=== PATIENT | male | born 1945 | race Caucasian/White ===

== ENCOUNTER 2018-02-14 09:44 | Observation (INO) | payer MEDICARE ==
[2018-02-14] MEDS ORDERED: NS 0.9% 1000 ML* 1,000 ML IV ONE (11:26)
[2018-02-14 11:48] LABS: ABS Basophils 0.1 10^3/ul (0-0.2); ABS Eosinophils 0.3 10^3/ul (0-0.6); ABS Lymphocytes 1.1 10^3/ul (1.0-4.8); ABS Monocytes 0.7 10^3/ul (0-0.8); ABS Neutrophils 6.6 10^3/ul (1.5-7.7); ABS Nucleated RBC 0 10^3/ul; Eosinophil % 3.1 % (0-6); Hematocrit 37 % (42-52); Hemoglobin 12.5 g/dl (14.0-18.0); Lymphocyte % 12.2 % (25-47); Mean Corpuscular HGB Conc 34 g/dl (31-36); Mean Corpuscular Hemoglobin 30 pg (27-31); Mean Corpuscular Volume 88 fL (80-94); Mean Platelet Volume 8.6 um3 (7.4-10.4); Nucleated Red Blood Cells % 0.2; Platelet Count 114 10^3/ul (150-450); Red Blood Count 4.25 10^6/ul (4.0-5.4); Red Cell Distribution Width 15 % (10.5-15); White Blood Count 8.7 10^3/ul (3.5-10.8)
[2018-02-14 11:56] LABS: INR 1.11 (0.77-1.02)
[2018-02-14 12:05] LABS: EGFR Non-African American 83.8 (>60)
--- NOTE | 2018-02-14 12:06 | RAD ---
HISTORY: Cough COMPARISONS: None VIEWS: 4: Frontal dual-energy and lateral views of the chest. FINDINGS: CARDIOMEDIASTINAL SILHOUETTE: The cardiomediastinal silhouette is normal. RADHA: The radha are normal. PLEURA: There is a small right pleural effusion. LUNG PARENCHYMA: The lungs are clear. ABDOMEN: The upper abdomen is clear. There is no subphrenic gas. BONES AND SOFT TISSUES: No bone or soft tissue abnormalities are noted. OTHER: None. IMPRESSION: SMALL RIGHT PLEURAL EFFUSION.
[2018-02-14] MEDS ORDERED: Azithromycin IV(*) 250 MG in NS 0.9% 250 ML* 250 ML IVPB ONE (12:27)
[2018-02-14] MEDS ORDERED: cefTRIAXone(*) 1 GM in NS 0.9% 50 ML* 50 ML IVPB ONE (12:27)
[2018-02-14] MEDS ORDERED: Iodixanol* (CONTRAST) 320 MG/ML 100 ML SDV IV ONE (12:38)
--- NOTE | 2018-02-14 12:57 | RAD ---
HISTORY: Pleural effusion, pulmonary embolism COMPARISONS: None TECHNIQUE: Multiple contiguous axial CT scans of the chest were obtained after the administration of nonionic intravenous contrast, timed to the pulmonary arterial phase of contrast enhancement.. Coronal and sagittal multiplanar reformations are also submitted for review. FINDINGS: NECK AND THYROID: The lower neck and thyroid are unremarkable. CHEST WALL: There is no lower cervical, axillary, or supraclavicular lymphadenopathy by size criteria. HEART AND PERICARDIUM: The heart is unremarkable. AORTA AND PULMONARY VASCULATURE: There is no pulmonary arterial filling defect to suggest pulmonary embolism. There is no linear filling defect within the aorta to suggest aortic dissection. MEDIASTINUM: There is no mediastinal lymphadenopathy by size criteria. RADHA: There is no hilar lymphadenopathy by size criteria. AIRWAY AND ESOPHAGUS: The airway is unremarkable, without endobronchial filling defect. The esophagus is grossly normal. LUNG PARENCHYMA: There is compressive atelectasis of the right lower lobe. PLEURA: There is a moderate right pleural effusion. There is pleural nodularity on the right. UPPER ABDOMEN: The liver and spleen are diffusely enlarged. There is a low-attenuation lesion of the right lobe of the liver measuring simple fluid in attenuation. There are paraesophageal and gastrohepatic varices. There is a micronodular contour to the liver. BONES AND SOFT TISSUES: Mild degenerative changes are noted. OTHER: None. IMPRESSION: 1. NO PULMONARY ARTERIAL FILLING DEFECT TO SUGGEST PULMONARY EMBOLISM. 2. MODERATE RIGHT PLEURAL EFFUSION WITH PLEURAL NODULARITY. THE DIFFERENTIAL INCLUDES MALIGNANT PLEURAL EFFUSION. 3. ENLARGED LIVER WITH A MICRONODULAR CONTOUR. ADDITIONALLY, THERE ARE UPPER ABDOMINAL VARICES WITH ENLARGED SPLEEN SUGGESTIVE OF PORTAL HYPERTENSION.
[2018-02-14 13:17] LABS: Urine Appearance Clear; Urine Blood Negative (Negative); Urine Color Yellow; Urine Ketones Negative (Negative); Urine Protein Negative (Negative); Urine Specific Gravity 1.034 (1.010-1.030); Urine Urobilinogen Negative (Negative)
--- NOTE | 2018-02-14 14:10 | ED ---
Brian Campos Rebecca, scribed for Mil Albrecht on 02/14/18 at 1058 . Respiratory - HPI Summary HPI Summary: Pt is a 72 y/o M who presents to ED c/o URI symptoms. For 3 weeks, the pt has been experiencing a cough and right anterior chest associated with cough. On triage, pain was described as mild, ranked 2/10. Sx aggravated by cough, alleviated by nothing. Additionally c/o SOB with exertion and fatigue. Denies fever and edema. Pt called his PCP, Dr. Granados, this morning who referred him to [facility] ED to r/o PNA. - History of Current Complaint Chief Complaint: EDUpperRespComplaint Stated Complaint: COUGH,CHEST CONGESTION Time Seen by Provider: 02/14/18 10:57 Hx Obtained From: Patient Onset/Duration: Lasting Weeks - 3 weeks, Still Present Current Severity: Mild Pain Intensity: 2 Character: Cough (Nonproductive), Dyspnea on Exertion Aggravating Factor(s): Other - Cough Alleviating Factor(s): Nothing Associated Signs and Symptoms: SOB - Allergy/Home Medications Allergies/Adverse Reactions: Allergies Allergy/AdvReac Type Severity Reaction Status Date / Time Sulfa (Sulfonamide Allergy as a child Verified 02/14/18 09:47 Antibiotics) Home Medications: Home Medications Ubidecarenone [Co Q-10] 200 mg PO DAILY 02/14/18 [History Confirmed 02/14/18] PMH/Surg Hx/FS Hx/Imm Hx Endocrine/Hematology History: Reports: Hx Diabetes - type 2 Cardiovascular History: Reports: Hx Hypercholesterolemia, Hx Hypertension Denies: Hx Pacemaker/ICD History: Reports: Hx Kidney Stones Denies: Hx Renal Disease Musculoskeletal History: Reports: Hx Arthritis - psoriatic arthritis Sensory History: Reports: Hx Contacts or Glasses - glasses, Hx Hearing Aid - bilat Opthamlomology History: Reports: Hx Contacts or Glasses - glasses Psychiatric History: Denies: Hx Panic Disorder - Surgical History Surgery Procedure, Year, and Place: Carpel tunnel releases bilateral. colonoscopies Hx Anesthesia Reactions: No Infectious Disease History: No Infectious Disease History: Denies: Traveled Outside the [place] in Last 30 Days - Family History Known Family History: Positive: Hypertension, Diabetes - Social History Alcohol Use: Rare Substance Use Type: Reports: None Smoking Status (MU): Former Smoker Amount Used/How Often: smoked cigars Review of Systems Positive: Fatigue. Negative: Fever Positive: Chest Pain Positive: Shortness Of Breath, Cough Negative: Edema All Other Systems Reviewed And Are Negative: Yes Physical Exam - Summary Physical Exam Summary: Appearance: Well appearing, no pain distress Skin: warm, dry, reflects adequate perfusion Head/face: normal Eyes: EOMI, LORENE ENT: normal Neck: supple, non-tender Respiratory: CTA, breath sounds present Cardiovascular: RRR, pulses symmetrical Abdomen: non-tender, soft Bowel: present Musculoskeletal: normal, strength/ROM intact Neuro: normal, sensory motor intact, A&Ox3 Triage Information Reviewed: Yes Vital Signs On Initial Exam: Initial Vitals Temp Pulse Resp BP Pulse Ox 97.5 F 77 18 149/72 96 02/14/18 09:47 02/14/18 09:47 02/14/18 09:47 02/14/18 09:47 02/14/18 09:47 Vital Signs Reviewed: Yes Diagnostics - Vital Signs Vital Signs Temp Pulse Resp BP Pulse Ox 02/14/18 09:47 97.5 F 77 18 149/72 96 - Laboratory Lab Results: Lab Results 02/14/18 02/14/18 02/14/18 Range/Units 11:38 11:38 11:38 WBC 8.7 (3.5-10.8) 10^3/ul RBC 4.25 (4.0-5.4) 10^6/ul Hgb 12.5 L (14.0-18.0) g/dl Hct 37 L (42-52) % MCV 88 (80-94) fL MCH 30 (27-31) pg MCHC 34 (31-36) g/dl RDW 15 (10.5-15) % Plt Count 114 L (150-450) 10^3/ul MPV 8.6 (7.4-10.4) um3 Neut % (Auto) 75.3 (38-83) % Lymph % (Auto) 12.2 L (25-47) % [place] % (Auto) 8.5 H (0-7) % Eos % (Auto) 3.1 (0-6) % Baso % (Auto) 0.9 (0-2) % Absolute Neuts (auto) 6.6 (1.5-7.7) 10^3/ul Absolute Lymphs (auto) 1.1 (1.0-4.8) 10^3/ul Absolute Monos (auto) 0.7 (0-0.8) 10^3/ul Absolute Eos (auto) 0.3 (0-0.6) 10^3/ul Absolute Basos (auto) 0.1 (0-0.2) 10^3/ul Absolute Nucleated RBC 0 10^3/ul Nucleated RBC % 0.2 INR (Anticoag Therapy) 1.11 H (0.77-1.02) APTT 28.0 (26.0-36.3) seconds Sodium 135 L (139-145) mmol/L Potassium 4.2 (3.5-5.0) mmol/L Chloride 101 (101-111) mmol/L Carbon Dioxide 27 (22-32) mmol/L Anion Gap 7 (2-11) mmol/L BUN 12 (6-24) mg/dL Creatinine 0.89 (0.67-1.17) mg/dL Est GFR ( Amer) 107.8 (>60) Est GFR (Non-Af Amer) 83.8 (>60) BUN/Creatinine Ratio 13.5 (8-20) Glucose 179 H (70-100) mg/dL Lactic Acid (0.5-2.0) mmol/L Calcium 9.6 (8.6-10.3) mg/dL Total Bilirubin 0.80 (0.2-1.0) mg/dL AST 23 (13-39) U/L ALT 22 (7-52) U/L Alkaline Phosphatase 105 H (34-104) U/L Troponin I 0.00 (<0.04) ng/mL B-Natriuretic Peptide ( - 100) pg/mL Total Protein 7.4 (6.4-8.9) g/dL Albumin 3.6 (3.2-5.2) g/dL Globulin 3.8 (2-4) g/dL Albumin/Globulin Ratio 0.9 L (1-3) Urine Color Urine Appearance Urine pH (5-9) Ur Specific [place] (1.010-1.030) Urine Protein (Negative) Urine Ketones (Negative) Urine Blood (Negative) Urine Nitrate (Negative) Urine Bilirubin (Negative) Urine Urobilinogen (Negative) Ur Leukocyte Esterase (Negative) Urine Glucose (Negative) 0502/14/18 02/14/18 Range/Units 11:38 11:38 13:04 WBC (3.5-10.8) 10^3/ul RBC (4.0-5.4) 10^6/ul Hgb (14.0-18.0) g/dl Hct (42-52) % MCV (80-94) fL MCH (27-31) pg MCHC (31-36) g/dl RDW (10.5-15) % Plt Count (150-450) 10^3/ul MPV (7.4-10.4) um3 Neut % (Auto) (38-83) % Lymph % (Auto) (25-47) % [place] % (Auto) (0-7) % Eos % (Auto) (0-6) % Baso % (Auto) (0-2) % Absolute Neuts (auto) (1.5-7.7) 10^3/ul Absolute Lymphs (auto) (1.0-4.8) 10^3/ul Absolute Monos (auto) (0-0.8) 10^3/ul Absolute Eos (auto) (0-0.6) 10^3/ul Absolute Basos (auto) (0-0.2) 10^3/ul Absolute Nucleated RBC 10^3/ul Nucleated RBC % INR (Anticoag Therapy) (0.77-1.02) APTT (26.0-36.3) seconds Sodium (139-145) mmol/L Potassium (3.5-5.0) mmol/L Chloride (101-111) mmol/L Carbon Dioxide (22-32) mmol/L Anion Gap (2-11) mmol/L BUN (6-24) mg/dL Creatinine (0.67-1.17) mg/dL Est GFR ( Amer) (>60) Est GFR (Non-Af Amer) (>60) BUN/Creatinine Ratio (8-20) Glucose (70-100) mg/dL Lactic Acid 1.5 (0.5-2.0) mmol/L Calcium (8.6-10.3) mg/dL Total Bilirubin (0.2-1.0) mg/dL AST (13-39) U/L ALT (7-52) U/L Alkaline Phosphatase (34-104) U/L Troponin I (<0.04) ng/mL B-Natriuretic Peptide 66 ( - 100) pg/mL Total Protein (6.4-8.9) g/dL Albumin (3.2-5.2) g/dL Globulin (2-4) g/dL Albumin/Globulin Ratio (1-3) Urine Color Yellow Urine Appearance Clear Urine pH 6.0 (5-9) Ur Specific [place] 1.034 H (1.010-1.030) Urine Protein Negative (Negative) Urine Ketones Negative (Negative) Urine Blood Negative (Negative) Urine Nitrate Negative (Negative) Urine Bilirubin Negative (Negative) Urine Urobilinogen Negative (Negative) Ur Leukocyte Esterase Negative (Negative) Urine Glucose Negative (Negative) Result Diagrams: 02/14/18 11:38 02/14/18 11:38 Lab Statement: Any lab studies that have been ordered have been reviewed, and results considered in the medical decision making process. - Radiology CXR Xray Interpretation: Positive (See Comments) - SMALL RIGHT PLEURAL EFFUSION. ED physician reviewed this report. Radiology Interpretation Completed By: Radiologist - CT CTA Chest CT Interpretation Completed By: Radiologist - 1. NO PULMONARY ARTERIAL FILLING DEFECT TO SUGGEST PULMONARY EMBOLISM. 2. MODERATE RIGHT PLEURAL EFFUSION WITH PLEURAL NODULARITY. THE DIFFERENTIAL INCLUDES MALIGNANT PLEURAL EFFUSION. 3. ENLARGED LIVER WITH A MICRONODULAR CONTOUR. ADDITIONALLY, THERE ARE UPPER ABDOMINAL VARICES WITH ENLARGED SPLEEN SUGGESTIVE OF PORTAL HYPERTENSION. ED physician reviewed this report. - EKG 1133 Cardiac Rate: NL - 75 bpm EKG Rhythm: Sinus Rhythm EKG Interpretation: No acute changes Re-Evaluation - Re-Evaluation First Eval Re-Evaluation Time: 13:32 Comment: Continues to have SOB. Disposition - Course Assessment/Plan: Pt is a 72 y/o M who presents to ED c/o cough, mild right anterior CP associated with cough and dyspnea on exertion with fatigue for 3 weeks. Pt called his PCP, Dr. Granados, this morning who referred him to [facility] ED to r/o PNA. EKG is sinus rhythm with no acute changes. CXR reveals small right pleural effusion. Discussed care with Dr. Denny who requested a CTA chest. CTA chest was negative for a pulmonary embolism. Discussed with Dr. Denny again who accepts pt for admission. In the ED course, pt received rocephin, fluids and azithromycin. Pt will be admitted with Dx of pneumonia and right pleural effusion. Allergy noted. - Differential Dx - Cardiopulmonary Differential Diagnoses - Cardiopulmonary: Bronchitis, CHF, Lower Resp Infection , Pleurisy, Other - pneumonia - Diagnoses Provider Diagnoses: Pneumonia, Pleural effusion, right - Physician Notifications Discussed Care Of Patient With: Gisella Denny Time Discussed With Above Provider: 12:35 Instructed by Provider To: Other - Requesting a CTA Chest. Discussed with Dr. Denny again at 1330 who accepts the pt for admission. Discharge - Sign-Out/Discharge Documenting (check all that apply): Discharge/Admit/Transfer - Admit - Discharge Plan Condition: Stable Disposition: ADMITTED TO [facility] Referrals: Leonel Light MD [Primary Care Provider] - - Billing Disposition and Condition Condition: STABLE Disposition: HOSP-[facility] The documentation as recorded by the Brian smith Rebecca accurately reflects the service I personally performed and the decisions made by Trena lambert Emmanuel.
[2018-02-14] MEDS ORDERED: Dextrose 50% Syringe 50 ML* 25 GM/50 ML SYRINGE IV PUSH PRN (14:32)
[2018-02-14] MEDS ORDERED: Furosemide IV* 10 MG/ML VIAL (40 MG) IV ONE (15:27)
[2018-02-14] MEDS: Insulin LISPRO* 1 UNITS UNIT SUBCUT SCH ×2 (16:38→20:40)
[2018-02-14] MEDS: Heparin VIAL(*) 5000 UNITS/ML VIAL (FIVE THOUSAND) SUBCUT SCH (20:41)
--- NOTE | 2018-02-14 21:30 | HP ---
CC: Leonel Light MD * ADMISSION HISTORY AND PHYSICAL: DATE OF ADMISSION: 02/14/18 ATTENDING PHYSICIAN: Gisella Denny MD * (DICTATED BY MATTHEW MESSINA NP) PRIMARY CARE PHYSICIAN: Leonel Light MD CHIEF COMPLAINT: Shortness of breath and cough. HISTORY OF PRESENT ILLNESS: This is a very pleasant 72-year-old male patient who reports increasing shortness of breath, dyspnea with exertion, upper respiratory symptoms and cough for 3 weeks. The patient also notes weight loss of 12 pounds in 4 weeks and some marked anorexia while at home. The patient states his p.o. intake has dropped by approximately 50% with no precipitating factors. He had not been dieting or trying to lose weight, just having some general malaise and fatigue and primarily this upper respiratory complaint. The patient has this unproductive cough but denies any fever, fatigue or chills. No chest pain. Some intermittent shortness of breath. No abdominal pain. No nausea. No vomiting. No urinary complaints. No arthralgias or myalgias. No nausea, vomiting, or diarrhea. No further constitutional complaints. PAST MEDICAL HISTORY: Significant for: 1. Non-insulin dependent diabetes mellitus. 2. Hypertension. PAST SURGICAL HISTORY: 1. Carpal tunnel release bilaterally. 2. Screening colonoscopy in the past. 3. Recent endoscopy. MEDICATIONS: At home include: 1. CoQ10 of 200 mg daily. 2. Metformin 1000 mg b.i.d. 3. Pravastatin 20 mg daily. 4. Metoprolol succinate XL 50 mg daily. 5. Ibuprofen 800 mg q.6 hours as needed. ALLERGIES: The patient has a SULFA allergy and SULFA BASED ANTIBIOTICS. FAMILY HISTORY: Parents with hypertension. Both parents also with pancreatic cancer, both . SOCIAL HISTORY: The patient does not smoke, used to smoke cigars many years ago and does drink alcohol very infrequently and denies any illicit drug use. 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 His , Yoli, is his healthcare proxy and surrogate decision maker who is at the bedside. REVIEW OF SYSTEMS: Ten-point review of systems is negative except as noted in HPI. PHYSICAL EXAMINATION GENERAL: The patient is alert, well appearing, in no acute distress. VITAL SIGNS: Blood pressure 146/72, heart rate 85, respiratory rate 18, O2 saturation 95% at rest on room air, temperature is 97.5. HEENT: The patient is atraumatic, normocephalic. PERRLA with nonicteric sclerae. NECK: Supple. Nontender. No thyromegaly appreciated. No JVD noted. LUNGS: Left lung is clear with good air entry on the left. Right, he has an inspiratory and expiratory wheeze with a pleuritic rub. No rales and no diffuse rhonchi noted. CARDIOVASCULAR: S1, S2 present. No murmurs, gallops, or rubs. Rate and rhythm are regular. ABDOMEN: Soft, nontender, nondistended. : Deferred. MUSCULOSKELETAL: There is no clubbing and no cyanosis. He has no peripheral edema. +2 distal pulses palpable. He is ambulatory without assistance. NEUROLOGIC: Grossly intact with no focal deficits. PSYCHIATRIC: He is cooperative and appropriate. LABORATORY DATA: WBC is 8.7, RBC is 4.25, hemoglobin 12.5, hematocrit 37, platelets 114,000. Sodium 135, potassium 4.2, chloride 101, CO2 of 27, BUN 12, creatinine 0.89, GFR is 83.8, glucose 179, lactic acid 1.5, calcium 9.6, bilirubin 0.80. AST 23, ALT 22, alk phos 105. Troponin is negative at 0.00. BNP is 66. Protein 7.4, albumin 3.6, globulin 3.8, INR is 1.11. Urinalysis shows a high specific gravity at 1.034, otherwise negative. IMAGING: Chest x-ray dated today shows a small right pleural effusion. Followup CAT scan of the chest to rule out PE, shows no pulmonary arterial filling defect to suggest a PE. There is a moderate right pleural effusion with pleural nodularity. The differential includes malignant pleural effusion, enlarged liver with a micronodular contour. Additionally, there are upper abdominal varices with an enlarged spleen suggestive of portal hypertension. Also in the liver, there is a low attenuation lesion of the right lobe of the liver measuring simple fluid and attenuation. IMPRESSION: This is a 72-year-old male with minimal medical history that presents to the emergency department with a 3-week complaint of progressive upper respiratory symptoms, cough, unproductive in nature, and shortness of breath that by a CAT scan today is shown to have a pleural effusion. Malignancy is in the differential. PLAN: The patient has been admitted to medical service. DIAGNOSES: 1. Right pleural effusion, etiology unclear. At this point, I would like to have the patient do walking saturations. The patient was stating he was clinically short of breath at home with dyspnea with exertion. We will check his walking sats to see if he is desaturating. We do not have Pulmonology on service today; however, he is very uncomfortable with his breathing on that right side. I have put a call out to Surgery to see if there is a possibility that we can tap this effusion today, both for the patient relief and also to send the fluid for cytology and pathology. 2. For his history of hypertension, we will continue his metoprolol. 3. For his diabetes, I would like to take him off his metformin for now and put him on insulin sliding scale. He can have a consistent carb diet. He is eating and drinking. I do not believe he needs IV fluids at this point. 4. For DVT prophylaxis, we will place him on heparin 5000 q.8 hours and again, we will look to Surgery and/or Pulmonology, whoever I can get in touch with first, for guidance regarding tapping this effusion and determining the cause. The rest of the patient's course will be determined by further diagnostics, laboratories and any other input from other providers as warranted during this admission. TIME SPENT: I spent approximately 60 minutes interviewing the patient, examining him, reviewing the chart and helping to determine the plan of care. MATTHEW MESSINA NP [id number]/[facility] #: [id number] YENNI
[2018-02-15] MEDS: Heparin VIAL(*) 5000 UNITS/ML VIAL (FIVE THOUSAND) SUBCUT SCH ×2 (05:00→14:58)
[2018-02-15 06:43] LABS: ABS Basophils 0.1 10^3/ul (0-0.2); ABS Eosinophils 0.2 10^3/ul (0-0.6); ABS Lymphocytes 0.9 10^3/ul (1.0-4.8); ABS Monocytes 0.8 10^3/ul (0-0.8); ABS Neutrophils 7.3 10^3/ul (1.5-7.7); ABS Nucleated RBC 0 10^3/ul; Eosinophil % 2.3 % (0-6); Hematocrit 35 % (42-52); Hemoglobin 12.2 g/dl (14.0-18.0); Lymphocyte % 9.7 % (25-47); Mean Corpuscular HGB Conc 35 g/dl (31-36); Mean Corpuscular Hemoglobin 30 pg (27-31); Mean Corpuscular Volume 86 fL (80-94); Mean Platelet Volume 8.4 um3 (7.4-10.4); Nucleated Red Blood Cells % 0; Platelet Count 111 10^3/ul (150-450); Red Blood Count 4.04 10^6/ul (4.0-5.4); Red Cell Distribution Width 15 % (10.5-15); White Blood Count 9.3 10^3/ul (3.5-10.8)
[2018-02-15 06:59] LABS: EGFR Non-African American 88.4 (>60)
[2018-02-15] MEDS: Insulin LISPRO* 1 UNITS UNIT SUBCUT SCH ×2 (08:45→14:04)
[2018-02-15] MEDS ORDERED: Metoprolol Succinate XL TAB* 50 MG PO SCH (09:00)
[2018-02-15] MEDS ORDERED: CMCS Pravastatin (NF) 20 MG TAB PO SCH ×2 (09:00→20:00)
--- NOTE | 2018-02-15 11:01 | PN ---
Subjective Date of Service: 02/15/18 Interval History: Pt is feeling about the same as when he came in. He describes feeling crappy. He still feels SOB and when he takes a deep breath it will trigger a coughing fit that could last up to an hour. He will occasionally bring up some clear mucous. Objective Active Medications: Dextrose (D50w Syringe 50 Ml*) 12.5 gm IV PUSH .FOR FS < 60 - SS PRN PRN Reason: FS < 60 Heparin Sodium (Porcine) (Heparin Vial(*)) 5,000 units SUBCUT Q8HR [facility] Last Admin: 02/15/18 05:00 Dose: Not Given Insulin Human Lispro (Humalog*) 0 units SUBCUT ACHS [facility] PRN Reason: Protocol Last Admin: 02/15/18 08:45 Dose: 2 unit Metoprolol Succinate (Toprol Xl Tab*) 50 mg PO DAILY [facility] Last Admin: 02/15/18 08:45 Dose: 50 mg Pravastatin Sodium (Pravachol (Nf)) 20 mg PO DAILY@1999 [facility] PRN Reason: Protocol Vital Signs - 8 hr 02/15/18 02/15/18 02/15/18 03:39 07:22 08:00 Temperature 98.9 F Pulse Rate 80 78 Respiratory 18 16 18 Rate Blood Pressure 139/65 121/64 (mmHg) O2 Sat by Pulse 93 93 Oximetry Oxygen Devices in Use Now: None Appearance: Elderly male who appears younger than his stated age sitting up in bed, NAD Eyes: No Scleral Icterus Ears/Nose/Mouth/Throat: Mucous Membranes Moist Respiratory: Symmetrical Chest Expansion and Respiratory Effort, Clear to Auscultation - diminshed breath sounds at the R base, no E to A change Cardiovascular: NL Sounds; No Murmurs; No JVD, RRR, No Edema Abdominal: NL Sounds; No Tenderness; No Distention Extremities: No Clubbing, Cyanosis Skin: No Rash or Ulcers, No Nodules or Sclerosis Neurological: Alert and Oriented x 3 Result Diagrams: 02/15/18 06:34 02/15/18 06:34 Additional Lab and Data: Lab Results 02/14/18 02/14/18 02/14/18 Range/Units 11:38 11:38 11:38 WBC 8.7 (3.5-10.8) 10^3/ul RBC 4.25 (4.0-5.4) 10^6/ul Hgb 12.5 L (14.0-18.0) g/dl Hct 37 L (42-52) % MCV 88 (80-94) fL MCH 30 (27-31) pg MCHC 34 (31-36) g/dl RDW 15 (10.5-15) % Plt Count 114 L (150-450) 10^3/ul MPV 8.6 (7.4-10.4) um3 Neut % (Auto) 75.3 (38-83) % Lymph % (Auto) 12.2 L (25-47) % Sierra % (Auto) 8.5 H (0-7) % Eos % (Auto) 3.1 (0-6) % Baso % (Auto) 0.9 (0-2) % Absolute Neuts (auto) 6.6 (1.5-7.7) 10^3/ul Absolute Lymphs (auto) 1.1 (1.0-4.8) 10^3/ul Absolute Monos (auto) 0.7 (0-0.8) 10^3/ul Absolute Eos (auto) 0.3 (0-0.6) 10^3/ul Absolute Basos (auto) 0.1 (0-0.2) 10^3/ul Absolute Nucleated RBC 0 10^3/ul Nucleated RBC % 0.2 INR (Anticoag Therapy) 1.11 H (0.77-1.02) APTT 28.0 (26.0-36.3) seconds Sodium 135 L (139-145) mmol/L Potassium 4.2 (3.5-5.0) mmol/L Chloride 101 (101-111) mmol/L Carbon Dioxide 27 (22-32) mmol/L Anion Gap 7 (2-11) mmol/L BUN 12 (6-24) mg/dL Creatinine 0.89 (0.67-1.17) mg/dL Est GFR ( Amer) 107.8 (>60) Est GFR (Non-Af Amer) 83.8 (>60) BUN/Creatinine Ratio 13.5 (8-20) Glucose 179 H (70-100) mg/dL Lactic Acid (0.5-2.0) mmol/L Calcium 9.6 (8.6-10.3) mg/dL Total Bilirubin 0.80 (0.2-1.0) mg/dL AST 23 (13-39) U/L ALT 22 (7-52) U/L Alkaline Phosphatase 105 H (34-104) U/L Troponin I 0.00 (<0.04) ng/mL B-Natriuretic Peptide ( - 100) pg/mL Total Protein 7.4 (6.4-8.9) g/dL Albumin 3.6 (3.2-5.2) g/dL Globulin 3.8 (2-4) g/dL Albumin/Globulin Ratio 0.9 L (1-3) Urine Color Urine Appearance Urine pH (5-9) Ur Specific [place] (1.010-1.030) Urine Protein (Negative) Urine Ketones (Negative) Urine Blood (Negative) Urine Nitrate (Negative) Urine Bilirubin (Negative) Urine Urobilinogen (Negative) Ur Leukocyte Esterase (Negative) Urine Glucose (Negative) 02/14/18 02/14/18 02/14/18 Range/Units 11:38 11:38 13:04 WBC (3.5-10.8) 10^3/ul RBC (4.0-5.4) 10^6/ul Hgb (14.0-18.0) g/dl Hct (42-52) % MCV (80-94) fL MCH (27-31) pg MCHC (31-36) g/dl RDW (10.5-15) % Plt Count (150-450) 10^3/ul MPV (7.4-10.4) um3 Neut % (Auto) (38-83) % Lymph % (Auto) (25-47) % Sierra % (Auto) (0-7) % Eos % (Auto) (0-6) % Baso % (Auto) (0-2) % Absolute Neuts (auto) (1.5-7.7) 10^3/ul Absolute Lymphs (auto) (1.0-4.8) 10^3/ul Absolute Monos (auto) (0-0.8) 10^3/ul Absolute Eos (auto) (0-0.6) 10^3/ul Absolute Basos (auto) (0-0.2) 10^3/ul Absolute Nucleated RBC 10^3/ul Nucleated RBC % INR (Anticoag Therapy) (0.77-1.02) APTT (26.0-36.3) seconds Sodium (139-145) mmol/L Potassium (3.5-5.0) mmol/L Chloride (101-111) mmol/L Carbon Dioxide (22-32) mmol/L Anion Gap (2-11) mmol/L BUN (6-24) mg/dL Creatinine (0.67-1.17) mg/dL Est GFR ( Amer) (>60) Est GFR (Non-Af Amer) (>60) BUN/Creatinine Ratio (8-20) Glucose (70-100) mg/dL Lactic Acid 1.5 (0.5-2.0) mmol/L Calcium (8.6-10.3) mg/dL Total Bilirubin (0.2-1.0) mg/dL AST (13-39) U/L ALT (7-52) U/L Alkaline Phosphatase (34-104) U/L Troponin I (<0.04) ng/mL B-Natriuretic Peptide 66 ( - 100) pg/mL Total Protein (6.4-8.9) g/dL Albumin (3.2-5.2) g/dL Globulin (2-4) g/dL Albumin/Globulin Ratio (1-3) Urine Color Yellow Urine Appearance Clear Urine pH 6.0 (5-9) Ur Specific [place] 1.034 H (1.010-1.030) Urine Protein Negative (Negative) Urine Ketones Negative (Negative) Urine Blood Negative (Negative) Urine Nitrate Negative (Negative) Urine Bilirubin Negative (Negative) Urine Urobilinogen Negative (Negative) Ur Leukocyte Esterase Negative (Negative) Urine Glucose Negative (Negative) Assess/Plan/Problems-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 Montoya, type II DM and HTN who presented to the ER with c/o SOB and cough for at least 3 -4 weeks and 12lb weight loss over at most 2-3 months. - Patient Problems (1) Dyspnea Current Visit: Yes Status: Acute Code(s): R06.00 - DYSPNEA, UNSPECIFIED SNOMED Code(s): 184920308 Comment: Likely secondary to pleural effusion. Dr. Campbell to consult today. No evidence of PE. No signs of infection at this time. (2) Pleural effusion Current Visit: Yes Status: Acute Code(s): J90 - PLEURAL EFFUSION, NOT ELSEWHERE CLASSIFIED SNOMED Code(s): 58784781 Comment: Plan for thoracentesis this afternoon with Dr. Campbell. ? etiology- malignant given pleural nodularity vs post infectious vs secondary to CHF. Echo ordered (seems unlikely as no other signs of CHF). (3) Type II diabetes mellitus Current Visit: Yes Status: Acute Comment: Sugars are under fair control. Continue lispro sliding scale. Metformin on hold for now. (4) HTN (hypertension) Current Visit: Yes Status: Acute Code(s): I10 - ESSENTIAL (PRIMARY) HYPERTENSION SNOMED Code(s): 25639580 Comment: BP is under good control. Continue metoprolol XL. (5) DVT prophylaxis Current Visit: Yes Status: Acute Code(s): ABI6779 - SNOMED Code(s): 493795359 Comment: ambulation while awaiting thoracentesis (6) Full code status Current Visit: Yes Status: Acute Code(s): Z78.9 - OTHER SPECIFIED HEALTH STATUS SNOMED Code(s): 628585910
--- NOTE | 2018-02-15 13:57 | RAD ---
HISTORY: Thoracentesis COMPARISONS: None. TECHNIQUE: Multiple transverse and longitudinal ultrasound images were obtained right hemithorax for the purposes of localization for thoracentesis using grayscale and color Doppler imaging. FINDINGS: There is a right pleural effusion. The distance from the skin to the margin of the effusion is 1.6 cm. The distance from the skin to the center of the effusion is 9.5 cm. A site was marked for the clinician. IMPRESSION: LIMITED ULTRASOUND OF THE RIGHT HEMITHORAX FOR THE PURPOSES OF LOCALIZATION FOR THORACENTESIS
[2018-02-15] MEDS ORDERED: cefTRIAXone(*) 1 GM in NS 0.9% 50 ML* 50 ML IVPB SCH (14:00)
--- NOTE | 2018-02-15 15:25 | RAD ---
HISTORY: Status post thoracentesis COMPARISONS: February 14, 2018 VIEWS: 1: frontal portable view of the chest at 3:03 PM FINDINGS: LINES AND TUBES: None. CARDIOMEDIASTINAL SILHOUETTE: The cardiomediastinal silhouette is normal for portable technique. PLEURA: The costophrenic angles are sharp. No pleural abnormalities are noted. There is no appreciable pneumothorax. LUNG PARENCHYMA: The lungs are clear. ABDOMEN: The upper abdomen is clear. There is no subphrenic gas. BONES AND SOFT TISSUES: No bone or soft tissue abnormalities are noted. IMPRESSION: INTERVAL RESOLUTION OF RIGHT PLEURAL EFFUSION. NO APPRECIABLE PNEUMOTHORAX.
--- NOTE | 2018-02-15 15:59 | ECHO ---
Patient: RUPA PAREKH [facility] Rec#: [id number] : 1945 Date: 02/15/2018 Age: 72y Height: 177.8 cm / 70.0 in Weight: 87.54 kg / 192.9 lbs Sex: M BSA: 2.06 Room#: 421 Admit Date#: 02/14/2018 Type: Inpatient Referring: Jessie Pollock DO Reading: Joshua Cash MD Senior Systems Software Engineer: Chaparrita Taylor RDCS CC: Loenel Light MD Transthoracic Echocardiogram Indication: SOB BP: 121/64 HR: 81 Rhythm: NSR Findings History: DM,HTN,right pleural effusion, s/p right thoracentesis just prior to this study. Technical Comments: The study quality is good. Completed at 1445. Left Ventricle: The left ventricular chamber size is decreased. Posterior wall hypertrophy is observed. Global left ventricular wall motion and contractility are within normal limits. There is normal left ventricular systolic function. The estimated ejection fraction is 55-60%. There is no consistent Doppler evidence of clinically significant diastolic dysfunction. Left Atrium: The left atrial chamber size is normal. Right Ventricle: The right ventricular cavity size is normal. The right ventricular global systolic function is normal. Right Atrium: The right atrial cavity size is normal. Aortic Valve: The aortic valve is trileaflet. There is no evidence of aortic valve thickening. There is no evidence of aortic regurgitation. There is no evidence of aortic stenosis. Mitral Valve: The mitral valve leaflets are mildly thickened. There is no evidence of mitral regurgitation. There is no evidence of mitral stenosis. Tricuspid Valve: The tricuspid valve leaflets are normal. There is no evidence of tricuspid valve regurgitation. Unable to estimate the right ventricular systolic pressure. There is no tricuspid stenosis. Pulmonic Valve: The pulmonic valve appears normal. Pericardium: The pericardium appears normal. Aorta: There is no dilatation of the ascending aorta. There is no dilatation of the aortic arch. There is no dilation of the aortic root. Pulmonary Artery: The main pulmonary artery appears normal. Venous: The venous system is not well visualized. Conclusions Global left ventricular wall motion and contractility are within normal limits. There is normal left ventricular systolic function. The estimated ejection fraction is 55-60%. The right ventricular global systolic function is normal. There is no evidence of aortic stenosis. There is no evidence of mitral regurgitation. There is no evidence of tricuspid valve regurgitation. Unable to estimate the right ventricular systolic pressure. Measurements Name Value Normal Range RVIDd (AP) 2D 2.6 cm (0.9 - 2.6) RVDdMajor (2D) 2.9 cm (2.2 - 4.4) RAd ISD 4CH 4.8 cm (3.4 - 4.9) RA (A4C)W 3.4 cm (2.9 - 4.6) IVSd (2D) 0.9 cm (0.6 - 1) LVPWd (2D) 1.1 cm (0.6 - 1) LVIDd (2D) 3.2 cm (3.6 - 5.4) LVIDs (2D) 2.5 cm - LV FS (2D) 22 % (25 - 45) Aortic Annulus 1.7 cm (1.4 - 2.6) Ao root diameter (2D) 3.3 cm (2.1 - 3.5) Ascending Ao 2.9 cm (2.1 - 3.4) Aortic arch 2.3 cm (1.8 - 3.4) Descending Ao 0.7 cm - LA dimension (AP) 2D 3.6 cm (2.3 - 3.8) LAd ISD 4CH 4.8 cm (2.9 - 5.3) LA ISD 4CH W 4 cm (2.5 - 4.5) Name Value Normal Range LA ESV SP 4CH (A/L) 43 ml - LA ESV SP 2CH (A/L) 33 ml - LA ESV BP (A/L) 38 ml - LA ESV BP (A/L) index 18.29 ml/m2 - LA ESV SP 4CH (MOD) 40 ml - LA ESV SP 2CH (MOD) 31 ml - Name Value Normal Range MV E-wave Vmax 0.9 m/sec - MV deceleration time 220 msec - MV A-wave Vmax 1 m/sec - MV E:A ratio 0.9 ratio - LV septal e' Vmax 0.07 m/sec - LV lateral e' Vmax 0.1 m/sec - LV E:e' septal ratio 12.85 ratio - LV E:e' lateral ratio 9 ratio - Name Value Normal Range AV Vmax 1.6 m/sec - AV VTI 25.1 cm - AV peak gradient 10.45 mmHg - AV mean gradient 4.04 mmHg - LVOT Vmax 1.5 m/sec - LVOT VTI 23.6 cm - LVOT peak gradient 8.95 mmHg - LVOT mean gradient 3.85 mmHg - Name Value Normal Range PV Vmax 1.3 m/sec - PV peak gradient 7.28 mmHg -
[2018-02-15 16:07] VITALS: BP 131/65
--- NOTE | 2018-02-15 22:42 | CONS ---
PULMONARY CONSULTATION REPORT: DATE OF CONSULTATION: 02/15/18 CONSULTATION REQUESTED BY: Dr. Pollock REASON FOR CONSULTATION: Evaluation of pleural effusion. HISTORY OF PRESENT ILLNESS: The patient is a 72-year-old male admitted for evaluation of worsening shortness of breath and cough for the past 3 weeks. The patient reports cold like symptoms 3 weeks ago. Had been having cough and mild dyspnea on exertion since then. The patient also reports 12 pounds weight loss in the past 4 weeks. The patient also reports decreased appetite. The patient also reports generalized malaise and fatigue. The patient denies fevers or chills. Denies abdominal pain, nausea, vomiting, urinary complaints, arthralgias, myalgias, nausea, vomiting, diarrhea. The patient denies recent travel. Further evaluation includes chest x-ray with scan of the chest pain. I have personally reviewed chest x-ray and CT scan of the chest. The patient noted to have evidence of pleural effusion on the right side on chest x-ray. CTA of the chest was also personally reviewed - no evidence of filling defects in the pulmonary arteries. The patient noted to have moderate to large right pleural effusion and also with pleural thickening on the right side. The patient with atelectasis of the right base. No suspicious nodules or masses were noted. The patient did not have elevated white count on laboratory workup. PAST MEDICAL HISTORY: 1. Hnt-cjlxjzc-hybfhzgqh diabetes mellitus. 2. Hypertension. PAST SURGICAL HISTORY: 1. Carpal tunnel release. 2. Screening colonoscopy. 3. Recent endoscopy. MEDICATIONS: 1. Coenzyme Q. 2. Metformin. 3. Pravastatin. 4. Metoprolol. 5. Ibuprofen. ALLERGIES: SULFA. FAMILY HISTORY: Parents with hypertension and pancreatic cancer. 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 The patient does not smoke. Used to smoke cigars many years ago. Does not drink alcohol. Denies any illicit drug use. REVIEW OF SYSTEMS: All systems reviewed and as per HPI. PHYSICAL EXAM: The patient in bed, in no apparent distress. Vital Signs: Temperature 99.2, pulse 82 beats per minute, respiratory rate 22 per minute, O2 sat 96% on room air, blood pressure 131/65. HEENT: Pupils are equal and reactive to light. Mucous membranes moist, no accessory muscle usage. No JVD. Lungs: Good air entry bilaterally. Cardiovascular: S1 and S2 present. Respiratory: Decreased breath sounds at right base. No wheeze on auscultation. Abdomen: Obese. Bowel sounds present. Extremities: Normal range of motion. Neuro: No focal deficits. Skin: No rash or bruises. DIAGNOSTIC STUDIES/LAB DATA: Laboratory exam, hemoglobin 12.2, WBC count 9.3, hematocrit 35, platelet count 111. INR 1.11. Sodium 134, potassium 4.1, chloride 101, bicarb 27, BUN 11, creatinine 0.85, BNP within normal limits. Pleural fluid analysis shows lymphocyte and neutrophil predominant fluid and rest of the tests are pending. IMPRESSION AND RECOMMENDATIONS: 72-year-old male with family history of pancreatic cancer, without significant smoking history, admitted with worsening cough, shortness of breath, recent weight loss, found to have right-sided pleural effusion, also with evidence of pleural thickening. Given the nature of fluid, the patient underwent thoracentesis with ultrasound guidance. 1200 mL of dark brown, blood-tinged fluid was aspirated. Fluid was sent to the lab for cytology and other testing to evaluate for malignancy. The patient tolerated the procedure well. Postprocedure chest x-ray did not reveal pneumothorax. The patient reported feeling better postprocedure. Fluid, characteristics concerning for malignancy. Will f/u The patient can be discharged home. Will follow up with the results of cytology in 2 to 3 days. Thank you for allowing me to participate in the care of your patient. Will follow up with you. [id number]/[facility] #: [id number] YENNI
--- NOTE | 2018-02-16 10:38 | PRO ---
THORACENTESIS REPORT: DATE OF PROCEDURE: 02/15/18 - ROOM #421 PROCEDURE PERFORMED: Ultrasound-guided thoracentesis on the right side. INDICATION FOR THE PROCEDURE/PREPROCEDURAL DIAGNOSIS: Moderate-sized right pleural effusion, rule out malignancy. POSTPROCEDURAL DIAGNOSIS: Odufbtha-ss-qrpky right pleural effusion. ANESTHESIA: Local anesthesia with 1% lidocaine. PROCEDURE: Informed consent was obtained from the patient prior to the procedure after all the risks and benefits were thoroughly explained. The patient presented to the hospital for evaluation of shortness of breath, cough, weight loss. CT showed evidence of moderate right pleural effusion with pleural thickening concerning for malignancy. A CareFusion 8-Scottish thoracentesis catheter was utilized for the procedure. Strict aseptic precautions were followed. Skin was sterilized with chlorhexidine. A portable ultrasound was used at bedside to localize ebszqkwk-cd-hvakp amounts of fluid. After localization through ultrasound, 1% lidocaine was instilled intradermally subcutaneously down into the pleural space taking precautions. CareFusion 8-Scottish catheter was then inserted after a stab incision was made into the back to facilitate passage of the catheter. Catheter was then inserted under manual suction. Catheter was left in place and needle was removed. Approximately 1200 mL of pleural fluid was drained under manual suction. Fluid was dark and blood stained. Fluid was sent to the lab for further testing. The patient tolerated the procedure well. Postprocedure chest x-ray was performed and verified by me. No evidence of pneumothorax was noted. [id number]/CPS #: [id number] MTDD
--- NOTE | 2018-02-16 18:26 | DS ---
CC: Dr. Light; Dr. Campbell * DISCHARGE SUMMARY: DATE OF ADMISSION: 02/14/18 DATE OF DISCHARGE: 02/15/18 PRIMARY CARE PROVIDER: Dr. Light. PRINCIPAL DIAGNOSIS: Dyspnea secondary to right plural effusion of unclear etiology. SECONDARY DIAGNOSES: 1. Type 2 diabetes. 2. Hypertension. DISCHARGE MEDICATIONS: 1. CoQ10 200 mg p.o. daily. 2. Metformin 1000 mg p.o. b.i.d. 3. Pravastatin 20 mg p.o. daily. 4. Metoprolol XL 50 mg p.o. daily. 5. Ibuprofen 800 mg p.o. q.6 hours p.r.n. pain. 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 The patient was identified to have a right-sided pleural effusion with pleural nodularity. Additionally, the liver was noted to be enlarged with a nodular contour with concerns for portal hypertension. The patient states the portal hypertension is a known diagnosis and he has been followed by Dr. Montoya. In terms of the pleural effusion, the etiology of this is unclear. The patient was seen in consultation by Dr. Campbell , who performed a thoracentesis on the day of discharge. The fluid color was noted to be red with white cells of 7000, RBCs 50,253. Pleural fluid, LDH, glucose, and protein are all pending, as well as culture and cytology. The patient was feeling well enough to be discharged home following the thoracentesis. I did speak with Dr. Campbell, who stated that she would follow the patient up in the clinic to get him the results of the thoracentesis. Of note, transthoracic echocardiogram was obtained given the pleural effusion. His EF was estimated to be 55% to 60% without any evidence of diastolic dysfunction. FOLLOWUP CONCERNS: The patient is being discharged home today, 02/15/18. ACTIVITY LEVEL: As tolerated. DIET: Diabetic. CONDITION ON DISCHARGE: Stable. TIME SPENT: Thirty-five minutes was spent discharging this patient. [id number]/[facility] #: [id number] [facility]
== END 2018-02-15 17:00 | disposition home or self-care (01) ==
LOC: ED 09:44 → INTOOBSV 14:28 → MEDTELE 14:28 → MED 15:11
PROVIDERS: ADMIT Internal Medicine; ATTEND Hospitalist
DX: J90 Pleural effusion, not elsewhere classified (principal); R06.00 Dyspnea, unspecified; E11.9 Type 2 diabetes mellitus without complications; I10 Essential (primary) hypertension; Z79.899 Other long term (current) drug therapy; Z88.2 Allergy status to sulfonamides; E78.00 Pure hypercholesterolemia, unspecified; M19.90 Unspecified osteoarthritis, unspecified site; L40.50 Arthropathic psoriasis, unspecified; Z80.8 Family history of malignant neoplasm of other organs or systems; R63.4 Abnormal weight loss; Z79.4 Long term (current) use of insulin
CPT/HCPCS: 36415; 71045; 71046; 71275; 76604; 80053; 80074; 81003; 82945; 83605; 83615; 83880; 84157; 84484; 85025; 85610; 85730; 86140; 87040; 87070; 87205; 88112; 88305; 89051; 93005; 93306; 96365; 96367; 96375; 99284; A9270-GY; G0378; J0456; J0696; J1940; Q9967

== ENCOUNTER 2018-03-29 06:58 | Inpatient (IN) | payer MEDICARE ==
--- NOTE | 2018-03-29 07:31 | ED ---
Complex/Multi-Sys Presentation - HPI Summary HPI Summary: This pt is a 72 y/o male presenting to [facility] c/o lack of energy and weakness from the waist down for the past 4-5 days. Pt reports he feels fatigued. He notes on February 15, pt had pleural effusion on the right for which he had a thoracentesis. Pt notes approximately 1200 mL of fluid was drained by Dr. Campbell on 02/15. He states that after this procedure he felt like he was recovering and was feeling better until 5 days ago. Four to five days ago he began to feels weakness on his legs. Additionally states urinary frequency, urinary urgency, and urinary retention most recently. He describes he is not fully able to empty his bladder. Per , pt has had decreased appetite. Pt notes he has had normal bowel movements, none today though. Denies any pain, chest pain, abd pain, SOB. PMHx includes kidney stones. Dr. Corea surgically removed kidney stone in 2016. - History Of Current Complaint Chief Complaint: EDWeakness Time Seen by Provider: 03/29/18 07:21 Hx Obtained From: Patient Onset/Duration: Lasting Days, Still Present Timing: Days Severity Currently: Moderate Location: Negative Aggravating Factor(s): nothing Alleviating Factor(s): nothing Associated Signs And Symptoms: Positive: Weakness, Other - POS: fatigue, decreased appetite, urinary urgency and frequency. Negative: SOB, Abdominal Pain, Fever - Allergies/Home Medications Allergies/Adverse Reactions: Allergies Allergy/AdvReac Type Severity Reaction Status Date / Time gluten Allergy Unknown Verified 02/14/18 16:28 Reaction Details Sulfa (Sulfonamide Allergy as a child Verified 02/14/18 09:47 Antibiotics) PMH/Surg Hx/FS Hx/Imm Hx Endocrine/Hematology History: Reports: Hx Diabetes - type 2 Cardiovascular History: Reports: Hx Hypercholesterolemia, Hx Hypertension Denies: Hx Pacemaker/ICD History: Reports: Hx Kidney Stones Denies: Hx Renal Disease Musculoskeletal History: Reports: Hx Arthritis - psoriatic arthritis Sensory History: Reports: Hx Contacts or Glasses - glasses, Hx Hearing Aid - bilat Opthamlomology History: Reports: Hx Contacts or Glasses - glasses Psychiatric History: Denies: Hx Panic Disorder - Surgical History Surgery Procedure, Year, and Place: Carpel tunnel releases bilateral. colonoscopies Hx Anesthesia Reactions: No Infectious Disease History: No Infectious Disease History: Denies: Traveled Outside the [place] in Last 30 Days - Family History Known Family History: Positive: Hypertension, Diabetes - Social History Alcohol Use: Rare Substance Use Type: Reports: None Smoking Status (MU): Never Smoked Tobacco Amount Used/How Often: smoked cigars Review of Systems Negative: Fever, Chills Negative: Chest Pain Negative: Shortness Of Breath Negative: Abdominal Pain Genitourinary: Other - urinary retention Positive: frequency, urgency Positive: Weakness All Other Systems Reviewed And Are Negative: Yes Physical Exam - Summary Physical Exam Summary: Appearance: The patient is well-nourished in no acute distress and in no acute pain. Skin: The skin is warm and dry and skin color reflects adequate perfusion. HEENT: The head is normocephalic and atraumatic. The pupils are equal and reactive. The conjunctivae are clear and without drainage. Nares are patent and without drainage. Mouth reveals moist mucous membranes and the throat is without erythema and exudate. The external ears are intact. The ear canals are patent and without drainage. The tympanic membranes are intact. Neck: the neck is supple with full range of motion and non-tender. There are no carotid bruits. There is no neck vein distension. Respiratory: Chest is non-tender. Decreased breath sounds about one third of the way up on the right. Cardiovascular: Heart is regular rate and rhythm. There is no murmur or rub auscultated. There is no peripheral edema and pulses are symmetrical and equal. Abdomen: The abdomen is soft and non-tender. There are normal bowel sounds heard in all four quadrants and there is no organomegaly palpated. : Bedside US shows over 400 CC in bladder. Musculoskeletal: There is no back tenderness noted. Extremities are non-tender with full range of motion. There is good capillary refill and good pulses in bilateral LE. There is no peripheral edema or calf tenderness elicited. Neurological: Patient is alert and oriented to person, place and time. The patient has symmetrical motor strength in all four extremities. Normal reflexes in LE. Psychiatric: The patient has an appropriate affect and does not exhibit any anxiety or depression. Triage Information Reviewed: Yes Vital Signs On Initial Exam: Initial Vitals Temp Pulse Resp BP Pulse Ox 97.5 F 87 20 141/67 95 03/29/18 06:59 03/29/18 06:59 03/29/18 06:59 03/29/18 06:59 03/29/18 06:59 Vital Signs Reviewed: Yes Diagnostics - Vital Signs Vital Signs Temp Pulse Resp BP Pulse Ox 03/29/18 06:59 97.5 F 87 20 141/67 95 - Laboratory Result Diagrams: 03/29/18 08:03 03/29/18 08:03 Lab Statement: Any lab studies that have been ordered have been reviewed, and results considered in the medical decision making process. - Radiology Chest XR Xray Interpretation: Positive (See Comments) - IMPRESSION: Moderate right pleural effusion with right basilar atelectasis versus consolidation. Recommend follow-up until resolution to exclude underlying pulmonary parenchymal pathology. Dr. Doan has reviewed this radiology report. Radiology Interpretation Completed By: Radiologist Re-Evaluation - Re-Evaluation First Eval Re-Evaluation Time: 08:36 Comment: Dr. Acosta, neurologist, in to see the pt. Second Eval Re-Evaluation Time: 09:09 Comment: Dr. Acosta came and saw the pt. He thinks the pt should be admitted for MRI and EMG studies. Complex Multi-Symp Course/Dx Course Of Treatment: Mr. Orona presented to the emergency department complaining of increasing weakness of his bilateral legs over the last 2 weeks. There has been some general weakness as well but is very specific about the legs. Essentially at this point if he goes upstairs his legs begin to get very weak and he has to rest. He also complains of incomplete voiding and urgency. He recently had a thoracentesis for a right-sided pleural effusion which revealed no malignant cells and the etiology of which is unclear. In the past he has a diagnosis of cirrhosis of unknown etiology. Bladder scan revealed over 400 cc after voiding and a Rucker catheter was placed. Labs were obtained and Dr. Acosta was consulted. He hasn't elevated white blood cell count of 20,000 and an elevated CRP. Dr. Acosta came to the emergency department and evaluated the patient and recommended admission and further workup. Hospitalist was contacted and is admitting the patient. - Diagnoses Provider Diagnoses: Urinary retention, Leg weakness - Physician Notifications Discussed Care Of Patient With: Allen Acosta Time Discussed With Above Provider: 08:02 Instructed by Provider To: Other - I discussed pt care with Dr. Acosta, neurologist, who reports he will come evaluate the pt in the ED. [09:08] I discussed with Dr. Don, hospitalist, who accepted the pt for admission. Discharge - Sign-Out/Discharge Documenting (check all that apply): Discharge/Admit/Transfer - Admit - Discharge Plan Condition: Stable Disposition: ADMITTED TO [facility] - Billing Disposition and Condition Condition: STABLE Disposition: Admitted to [facility]
[2018-03-29 08:23] LABS: ABS Basophils 0.1 10^3/ul (0-0.2); ABS Eosinophils 0.2 10^3/ul (0-0.6); ABS Monocytes 1.1 10^3/ul (0-0.8); ABS Neutrophils 17.8 10^3/ul (1.5-7.7); ABS Nucleated RBC 0 10^3/ul; Eosinophil % 0.9 % (0-6); Hematocrit 32 % (42-52); Hemoglobin 10.6 g/dl (14.0-18.0); Lymphocyte % 4.8 % (25-47); Mean Corpuscular HGB Conc 33 g/dl (31-36); Mean Corpuscular Hemoglobin 28 pg (27-31); Mean Corpuscular Volume 86 fL (80-94); Mean Platelet Volume 9.1 um3 (7.4-10.4); Nucleated Red Blood Cells % 0; Platelet Count 147 10^3/ul (150-450); Red Blood Count 3.76 10^6/ul (4.00-5.40); Red Cell Distribution Width 16 % (10.5-15); White Blood Count 20.1 10^3/ul (3.5-10.8)
--- NOTE | 2018-03-29 08:32 | RAD ---
HISTORY: weak, recent thoracentesis COMPARISONS: February 15, 2018 VIEWS: 4: Frontal dual-energy and lateral views of the chest. FINDINGS: CARDIOMEDIASTINAL SILHOUETTE: The cardiomediastinal silhouette is normal. RADHA: The radha are normal. PLEURA: There is a moderate right pleural effusion. There is no appreciable pneumothorax. LUNG PARENCHYMA: There is confluent alveolar opacification of the right lung base. ABDOMEN: The upper abdomen is clear. There is no subphrenic gas. BONES AND SOFT TISSUES: No bone or soft tissue abnormalities are noted. OTHER: None. IMPRESSION: MODERATE RIGHT PLEURAL EFFUSION WITH RIGHT BASILAR ATELECTASIS VERSUS CONSOLIDATION. RECOMMEND FOLLOW-UP UNTIL RESOLUTION TO EXCLUDE UNDERLYING PULMONARY PARENCHYMAL PATHOLOGY.
[2018-03-29 08:49] LABS: EGFR Non-African American 110.5 (>60)
[2018-03-29 09:35] LABS: Urine Appearance Clear; Urine Blood Negative (Negative); Urine Color Yellow; Urine Ketones Negative (Negative); Urine Protein Negative (Negative); Urine Specific Gravity 1.018 (1.010-1.030); Urine Urobilinogen Negative (Negative)
[2018-03-29 10:04] LABS: INR 1.26 (0.77-1.02)
[2018-03-29] MEDS ORDERED: Acetaminophen TAB* 325 MG PO PRN (10:42)
[2018-03-29] MEDS ORDERED: Al Hydrox/Mg Hydrox/Simet LIQ* 30 ML UDC PO PRN (10:42)
[2018-03-29] MEDS ORDERED: Albuterol 2.5 MG/3 ML NEB.SOL* (0.083%) INH PRN (10:42)
[2018-03-29] MEDS ORDERED: Ondansetron INJ* 2 MG/ML VIAL IV PRN (10:42)
[2018-03-29] MEDS ORDERED: oxyCODONE/Acetamin 5/325 MG* TAB PO PRN (10:42)
[2018-03-29] MEDS ORDERED: Magnesium Hydroxide LIQ* 30 ML UDC PO PRN (10:42)
[2018-03-29] MEDS ORDERED: Dextrose 50% Syringe 50 ML* 25 GM/50 ML SYRINGE IV PUSH PRN (10:50)
[2018-03-29] MEDS: Insulin LISPRO* 1 UNITS UNIT SUBCUT SCH ×3 (11:49→21:13)
[2018-03-29] MEDS: Heparin VIAL(*) 5000 UNITS/ML VIAL (FIVE THOUSAND) SUBCUT SCH ×2 (12:10→21:13)
--- NOTE | 2018-03-29 14:03 | HP ---
AMENDED REPORT NOW INCLUDES COSIGNER DESIGNATION - ESIGNED BEFORE ADJUSTMENTS CC: Dr. Leonel Light; Dr. Inman; Dr. Acosta * ADMISSION HISTORY AND PHYSICAL: DATE OF ADMISSION: 03/29/18 PATIENT OF: Attending hospitalist, Dr. Osman Don. PRIMARY CARE PHYSICIAN: Leonel Light MD ATTENDING PHYSICIAN WHILE IN HOSPITAL: Osman Don MD* (DICTATED BY REGINALDO FERNANDEZ) CHIEF COMPLAINT: Generalized weakness and fatigue. HISTORY OF PRESENT ILLNESS: Mr. Orona is a pleasant 72-year-old gentleman, who carries a past medical history significant for [id number] diabetes mellitus, hypertension, and hyperlipidemia, who presented to the emergency room earlier today with complaints of generalized weakness and fatigue for the past 2 days. The patient has no specific symptoms about his weakness, but overall, he thinks it is more pronounced in his lower extremity. He has been able to walk; however, he gets tired easily. He denies any numbness, tingling, upper extremity weakness, chest pain, or shortness of breath. He denies any fever, chills, headache, syncope, or any other associated symptoms. He denies any recent travel or hiking outdoors. He was admitted to the hospital in late January of this year with complaints of cough and shortness of breath where he was found to have right pleural effusion. He also noted weight loss of 12 pounds and generalized decreased appetite back then. He had thoracocentesis and his pathology report showed no evidence of malignant cells. He also notes increased abdominal bloating lately, but denies any abdominal pain or recent changes in the bowel habits. He was evaluated in the emergency room and was found to have leukocytosis with a white count of 20,000 as well as elevated C- reactive protein of 163. He also had complaints of urinary retention and inability to urinate since last night. He describes some suprapubic pressure, but denies any history of BPH. He did have a history of nephrolithiasis for which he had cystoscopy with stone extraction and stent placement by Dr. Corea about a year and a half ago, but denies any flank pain or hematuria at this time. Given his ongoing symptoms and unclear etiology of his weakness and fatigue, we would ask to see the patient for further evaluation and to consider admission. It is to be noted that Dr. Acosta from Neurology had seen the patient while he was in the ED as well and initial evaluation showed no neurological deficit; however, an MRI of the brain as well as an EMG was ordered and the results are currently pending at the time of admission. PAST MEDICAL HISTORY: Significant for: 1. Rmh-[id number]-[id number] diabetes mellitus. 2. Hypertension. 3. Hyperlipidemia. PAST SURGICAL HISTORY: Significant for carpal tunnel release bilaterally. CURRENT MEDICATIONS: His medications at home include: 1. Metformin 1000 mg p.o. b.i.d. 2. Metoprolol 50 mg p.o. daily. 3. Pravachol 20 mg p.o. daily. 4. CoQ10 200 mg p.o. daily. ALLERGIES: He is allergic to SULFA and SULFA-BASED ANTIBIOTIC as well as GLUTEN. FAMILY HISTORY: Significant for parents with hypertension and both of them also had pancreatic cancer. SOCIAL HISTORY: The patient is a nonsmoker; however, he used to smoke a cigar occasionally many years ago. He does drink alcohol very rarely. 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 He wishes to be a full code. REVIEW OF SYSTEMS: See HPI. Otherwise, a 14-point review of systems was evaluated and were essentially negative. PHYSICAL EXAMINATION GENERAL: He is a pleasant, healthy appearing, older gentleman, appears comfortable, and in no acute distress or discomfort at the time of admission. VITAL SIGNS: Reveal temperature of 97.6, pulse of 77, blood pressure 125/66, respirations of 16, and O2 sat of 99% on room air. HEENT: Head is normocephalic, atraumatic. Sclerae anicteric. PERRLA. EOMs intact. Oropharynx is pink and moist. NECK: Supple. Trachea midline. No cervical adenopathy, thyromegaly, or JVD. LUNGS: Clear to auscultation bilaterally. HEART: Regular rate and rhythm. Normal S1 and S2 without rubs, murmurs, or gallops. BACK: With normal curvature. No CVA tenderness. ABDOMEN: Round and protuberant. There is no tenderness; however, there is mild distention noted. No hernias, masses, or hepatosplenomegaly. RECTAL: Exam deferred at this time. EXTREMITIES: Without cyanosis, clubbing, or edema. NEUROLOGIC: He is awake, alert, and oriented x4. Tongue is midline and handgrips equal bilaterally. He raised both lower extremities without any difficulty. Dorsiflexion is equal bilaterally. Sensation is intact throughout. DIAGNOSTIC STUDIES/LAB DATA: CBC with a white count of 20,000, hemoglobin 10.6 , hematocrit of 32, and platelets of 147. Chemistry panel with a sodium of 134 , potassium 4.5, chloride of 100, CO2 of 24, BUN of 15, and creatinine of 0.7, his calcium is 9.6, glucose 175. LFTs within normal limits except for slightly elevated alkaline phosphatase of 149. C-reactive protein elevated at 163. Urinalysis appears clear. INR is 1.26. Accessory diagnostic data: Chest x-ray was performed in the ED and compared to the study done on 02/15/18, revealed moderate right pleural effusion that appears to be slightly worse than one done in late January and as mentioned above, pathology report from last thoracocentesis, on 02/15/18, revealed no evidence of malignant cells. IMPRESSION: A 72-year-old gentleman, who has a history of hypertension, hyperlipidemia, and recurrent right pleural effusion, who presented to the emergency room with 2 days' history of generalized weakness and fatigue, found to have leukocytosis and elevated C-reactive protein and will be admitted to the medical floor for the following. ASSESSMENT AND PLAN: 1. Weakness. It is unclear whether it is a neurological issue or a metabolic issue at this time. I also suspect some inflammatory response that might be the reason for his elevated white count as well as a C-reactive protein. He does not exhibit any evidence of fever, difficulty breathing, or any signs or symptoms to suggest pneumonia. I will hold off any antibiotic therapy at this time and will await the recommendation from ID to determine if antibiotic coverage is necessary. At this time, the patient has been worked up by neurological services and MRI is pending and EMG is pending as well at the time of admission. 2. Hypertension. We will continue his metoprolol. 3. Diabetes mellitus. We will hold off his metformin for now and put him on insulin sliding scale. I will have him also on a consistent-carb diet. 4. Recurrent right pleural effusion. Again, etiology is unclear; however, a recent thoracocentesis which pathology done at the end of January of this year suggest no evidence of malignant cells. There is also suggestion of abdominal distention. I will await the results of the ultrasound to see if there is any fluid or any evidence of ascites noted. His LFTs appeared to be normal and he has no history of cirrhosis or any history of alcohol abuse. 5. DVT prophylaxis. He will be placed on heparin 5000 mg subcu. 6. Code status. He is a full code. TIME SPENT: Approximately 60 minutes was spent admitting this patient with greater than 50% was spent taking the history and performing physical exam. I have discussed the case with my attending, Dr. Don, who agreed to plan of care. REGINALDO FERNANDEZ [id number]/[facility] #: [id number] MTDD
--- NOTE | 2018-03-29 14:14 | RAD ---
INDICATION: Abdominal distention. COMPARISON: Comparison is made with a prior abdominal ultrasound from June 10, [address] of the abdomen and pelvis from July 22, 2016. TECHNIQUE: Multiple real-time images of the right upper quadrant were obtained. FINDINGS: The gallbladder is distended. No gallstones, gallbladder wall thickening or positive sonographic Salas sign is seen. No intra or extrahepatic ductal distention is present. The common bile duct measured 0.7 cm in diameter. The liver is diffusely heterogeneous in echogenicity with a nodular contour most consistent with cirrhosis. No significant focal solid nodule is seen. There is a cyst in the right hepatic lobe measuring 1.8 x 2.0 x 2.0 cm. The portal and hepatic veins appear patent. The portal vein is dilated measuring 1.7 cm in diameter most consistent with portal hypertension. The pancreas is partially obscured by overlying bowel gas. The spleen is markedly enlarged measuring 17.8 x 8.2 x 7.4 cm. The right kidney measured 12.1 x 5.5 x 5.4 cm. No hydronephrosis is present. There is a simple cyst in the inferior pole measuring 2.6 x 1.6 x 2.0 cm. There is a small amount of ascites present. IMPRESSION: 1. SMALL AMOUNT OF ASCITES. 2. DISTENDED GALLBLADDER. 3. HETEROGENEOUS NODULAR LIVER CONSISTENT WITH CIRRHOSIS. 4. DISTENDED PORTAL VEIN CONSISTENT WITH PORTAL HYPERTENSION. 5. SPLENOMEGALY.
--- NOTE | 2018-03-29 14:43 | RAD ---
Indication: Right pleural effusion. CT of the chest performed without IV contrast. Comparison is made with previous exam dated February 06, 2018. Inferior thyroid lobes are unremarkable. 3 to 5 mm right paratracheal lymph nodes are noted. Heart demonstrates no pericardial effusion. There is moderate size right pleural effusion noted. There are focal areas of increased density in the right lower lobe likely representing masses. Some are pleural-based. Underlying neoplastic process should be considered. Suggestion of nodularity is noted in the right base. Left lung field appears clear. Splenomegaly is present suggestive of portal hypertension. Mesenteric edema is noted. IMPRESSION: Loculated right pleural effusion with nodularity in the right base consistent with neoplastic process. Findings are similar to that identified on February 06, 2018.
--- NOTE | 2018-03-29 14:46 | RAD ---
Indication: Weakness. CT of the brain was performed without IV contrast. Ventricular structures are midline. No midline shift is noted. The extra-axial spaces are unremarkable. There is no evidence of intracranial mass or hemorrhage. No other high or low density lesions identified. Mastoid air cells and paranasal sinuses are otherwise unremarkable. IMPRESSION: No intracranial mass or hemorrhage is noted.
--- NOTE | 2018-03-29 15:09 | CONS ---
CC: Dr. Leonel Light * CONSULTATION REPORT: DATE OF CONSULT: 03/29/18 HISTORY OF PRESENT ILLNESS: This is a 72-year-old right-handed man, who is being evaluated for a number of complaints. He was admitted end of January with a complaint of shortness of breath and he had a pleural effusion, which was tapped and showed an inflammatory process, but without any clear malignancy. He had some weight loss prior to this. 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 His thought that this was probably true. He is not aware of this. He is presenting now because of some sensation that his legs were not working well. He had some problems with urinary hesitancy and incontinence in the past few days and possible dribbling in the past few days' time. There have been no bowel problems. There have been no headaches, visual symptoms, neck pain, or trauma. There have been no problems with his stool. There has been no numbness in his hands and/or feet. He denies any problems walking and no balance problems. He has lost about 4 pounds since the when he had his pleural effusion tap. There has been no difficulty swallowing. No visual changes. PAST SURGICAL HISTORY: He has had his recent thoracentesis, carpal tunnel release bilaterally, colonoscopy, and endoscopy. MEDICATIONS: At home, include: 1. Pravachol 20 mg daily. 2. Metoprolol 50 mg daily. 3. Metformin 1000 mg daily. 4. Coenzyme Q 200 mg daily. ALLERGIES: He is allergic to GLUTEN and SULFA ANTIBIOTICS. FAMILY HISTORY: The parents both had hypertension and they both had pancreatic cancer. SOCIAL HISTORY: He does not smoke, but smoked cigars many years ago. He drinks alcohol infrequently and does not use drugs. 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 REVIEW OF SYSTEMS: Negative other than HPI. PHYSICAL EXAM: Temperature 98.6, pulse 66, respiratory rate 16, blood pressure 134/65. He is alert and oriented with normal speech and comprehension. Cranial nerves II through XII were intact. There is no nystagmus. Facies were symmetric. Motor exam revealed normal tone and strength including in his legs. He had minimally unsteady Romberg and when he turns, there is a slight wide- based turn. Either he or his noticed anything new with his gait or his turning abilities. His sensation was intact to touch and vibration in his feet with trace-to-1 ankle jerks, 1+ knee jerks. [id number] was intact. There is no pronator drift. Discs were sharp. Neck was supple. Chest: Clear other than rales in his right base. Cardiovascular: Regular rate and rhythm. Abdomen is soft with positive bowel sounds. He had 400 cc on a postvoid residual of his bladder. DIAGNOSTIC STUDIES/LAB DATA: His chest x-ray showed worsening pleural effusion since his thoracentesis. He had a white count of 20.1, hematocrit of 32, platelets 147. INR 1.26. Chemistry showed sodium of 134, normal lytes other than chloride of 100. He had BUN of 15, creatinine 0.7. AST 24, ALT 26. C-reactive protein 163. Alk phos 149. Albumin 2.8. UA was negative with a specific gravity of 1.018. 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 There is a subjective change in strength of his legs with some findings of unsteadiness on exam; these were minimal. He also has significant urinary retention and recurrence of his pleural effusion. He also has an elevated white count and a CRP. The concern is whether there is some inflammatory process going on, either a malignancy or autoimmune disease. I do not think that his leg weakness is due to a process such as myositis because his SGOT is normal, but we will be double checking with a CPK. It is possible he has a neuropathy that is causing his bladder to be distended and his gait to be somewhat affected. We will be checking a conduction study. I am also checking an MRI scan of his brain to screen for inflammatory processes. We are going to do it with and without contrast unless Dr. Campbell thinks he needs a CT with and without contrast, then we would probably take precedence over the contrast MRI and we will just get a noncontrast MRI scan. At this point, Dr. Doan is checking into this. I discussed this with the patient and Dr. Doan that if we do not come with any answers, he would need also a spinal tap looking for inflammatory process and to be sent for both malignancy and also I would screen him for paraneoplastic workup. I would also do that at that point on his serum. He also should have GABBIE rheumatoid factor sent. I think this is unlikely to be his spine, since his bladder is not spastic, but flaccid, but depending on how his workup goes, we may wind up imaging his spine as well. Thank you for sharing this case. [id number]/[facility] #: [id number]
[2018-03-29] MEDS ORDERED: Gadoteridol* (CONTRAST) 279.3 MG/ML 10 ML IV ONE (15:55)
[2018-03-29] MEDS ORDERED: Phytonadione Oral Solution* 5 MG/25 ML UDC PO ONE (16:30)
--- NOTE | 2018-03-29 16:31 | RAD ---
Indication: Leg weakness. Sagittal and axial T1, axial T2, FLAIR, diffusion and susceptibility weighted images of the brain were obtained. 18 mL of ProHance was injected and postcontrast sagittal, axial and coronal T1-weighted images were obtained. Ventricular structures are midline. No midline shift is noted. There is central and cortical atrophy noted. Periventricular signal abnormality consistent with minor microvascular change is noted. Focal area of increased signal is noted in the right basal ganglia. This is nonspecific. No restriction of diffusion is noted. The brainstem and posterior fossa are unremarkable. Postcontrast images demonstrate no definite abnormally enhancing lesions. Paranasal sinuses are otherwise unremarkable. Orbits are grossly unremarkable. Mastoid air cells demonstrates fluid in the mastoid air cells are prominent on the right than left. Diffusion-weighted images demonstrate no restriction of diffusion. Stability weighted images demonstrate no evidence of susceptibility artifact. IMPRESSION: No abnormally enhancing lesions are identified. No restriction of diffusion is noted.
--- NOTE | 2018-03-29 19:49 | CONS ---
CONSULTATION REPORT: DATE OF CONSULT: 03/29/18 REQUESTING PROVIDER: REGINALDO Pedraza CONSULTING SERVICE: Infectious Disease. REASON FOR CONSULT: Leukocytosis. IMPRESSION: 1. Leukocytosis, which is new, predominantly neutrophils in the setting of a normocytic anemia, which is also relatively new, so he has pancytopenia. Interestingly, his platelets are as best as they have been. There could be some hemoconcentration. He recently had a right-sided pleural effusion, which was drained. No malignant cells. He has been evaluated now for urinary retention and negative urinalysis as well as lower extremity subjective weakness. He is going to have a brain imaging, CT of the chest, abdomen, and pelvis and a lumbar puncture. We will add blood cultures. He has no spine tenderness. 2. Ukh-twqzlen-bapqmxkqf diabetes. 3. Hypertension. RECOMMENDATIONS: We will hold on antibiotics. Check a set of blood cultures. Await the imaging studies that are planned. On reviewing, we will consider MRI of the spine. HISTORY OF PRESENT ILLNESS: This is a 72-year-old male admitted with lower extremity weakness and urinary retention. He was well until a few weeks ago, he had some dyspnea and cough and a right-sided pleural effusion, which was found to exudative in nature. Malignant cells were not detected. The culture of the fluid was negative. His breathing has been better since then. He then developed a few days of difficulty urinating with some urinary frequency and urgency and then weakness in his legs. He noted this especially when climbing stairs. No pain in the calves. No back pain. Because of those symptoms, he came to the hospital. This morning, he had a white count of 20,000, neutrophil predominance. An ultrasound of his liver was done that showed cirrhosis, portal hypertension, splenomegaly, distended gallbladder, ascites. He was seen by Neurology, ordered the imaging and evaluation is as above. He did not have blood cultures taken yet that he recalls. He has been afebrile here. His white count at his last admission was 9,000. He had another chest x-ray here that showed moderate right-sided pleural effusion. He has had no cough or trouble breathing. No rash. No abdominal pain, diarrhea. He feels abdomen is a little bit distended today. PAST MEDICAL HISTORY: 1. Cirrhosis. 2. Right pleural effusion, exudative in January 2018. 3. Hypertension. 4. Hyperlipidemia. 5. Jqn-skwuvmm-cpkgqpjln diabetes. MEDICATIONS: 1. Tylenol. 2. Albuterol. 3. Lipitor. 4. Coenzyme Q. 5. Zofran as needed. 6. Oxycodone as needed. ALLERGIES: SULFA, unknown reaction and GLUTEN. FAMILY HISTORY: No recurrent infections. SOCIAL HISTORY: He lives in [place]. 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 No travel. No sick contacts. Lives with his . REVIEW OF SYSTEMS: All negative, except as noted above in the history of present illness. PHYSICAL EXAMINATION: Vital Signs: Temperature is 37, heart rate is 60, respiratory rate 16, blood pressure 134/65, oxygen saturation 98% on room air. In general, he is awake, not in distress. Neurologic: He is oriented x3, follows all commands, moves all of his extremities. The rest of the neurologic exam was deferred as he is on his way out the door for an MRI. HEENT: There is no conjunctival hemorrhage. Oropharynx without lesions. Neck is supple without mass. Lymph Nodes: There is no cervical, supraclavicular, inguinal, axillary, or epitrochlear lymphadenopathy. Heart: Regular rate and rhythm without murmurs, rubs, or gallops. Lungs are clear to auscultation bilaterally. Abdomen: Soft, nontender, nondistended. There are bowel sounds present. Mildly distended. Skin: There are no rashes or splinter hemorrhages. Musculoskeletal: There is no spine tenderness to palpation or joint synovitis. LABORATORY DATA: White blood cell count 20, hemoglobin 10, platelets 147. Creatinine 0.7. CRP 165. Please see impressions and recommendations as outlined above. Thanks for asking me to see Mr. Orona in consultation. [id number]/[facility] #: [id number] YENNI
[2018-03-30] MEDS: Heparin VIAL(*) 5000 UNITS/ML VIAL (FIVE THOUSAND) SUBCUT SCH ×3 (05:49→21:43)
[2018-03-30 06:14] LABS: ABS Basophils 0.1 10^3/ul (0-0.2); ABS Eosinophils 0.3 10^3/ul (0-0.6); ABS Lymphocytes 1.3 10^3/ul (1.0-4.8); ABS Neutrophils 15.5 10^3/ul (1.5-7.7); ABS Nucleated RBC 0 10^3/ul; Eosinophil % 1.8 % (0-6); Hematocrit 32 % (42-52); Hemoglobin 10.7 g/dl (14.0-18.0); Lymphocyte % 7.2 % (25-47); Mean Corpuscular HGB Conc 33 g/dl (31-36); Mean Corpuscular Hemoglobin 28 pg (27-31); Mean Corpuscular Volume 85 fL (80-94); Mean Platelet Volume 9.1 um3 (7.4-10.4); Nucleated Red Blood Cells % 0.1; Platelet Count 153 10^3/ul (150-450); Red Blood Count 3.82 10^6/ul (4.00-5.40); Red Cell Distribution Width 16 % (10.5-15); White Blood Count 18.3 10^3/ul (3.5-10.8)
[2018-03-30 06:19] LABS: INR 1.23 (0.77-1.02)
[2018-03-30 06:30] LABS: EGFR Non-African American 110.5 (>60)
[2018-03-30] MEDS: Metoprolol Succinate XL TAB* 50 MG PO SCH (08:19)
[2018-03-30] MEDS: Atorvastatin* 10 MG TAB PO SCH (08:19)
[2018-03-30] MEDS: Ubidecarenone [Co Q-10] 200 MG PO SCH (08:19)
[2018-03-30] MEDS: Insulin LISPRO* 1 UNITS UNIT SUBCUT SCH ×4 (08:20→21:42)
--- NOTE | 2018-03-30 17:05 | PN ---
Subjective Date of Service: 03/30/18 Interval History: Seen this AM. Feels no better. Still generally weak. Not in any pain. Denies SOB /CP, N/V Objective Active Medications: Acetaminophen (Tylenol Tab*) 650 mg PO Q4H PRN PRN Reason: FEVER/PAIN Al Hydrox/Mg Hydrox/Simethicone (Maalox Plus*) 30 ml PO Q6H PRN PRN Reason: INDIGESTION Albuterol (Ventolin 2.5 Mg/3 Ml Neb.Chen*) 2.5 mg INH [id number] AWAKE PRN PRN Reason: sob/wheezing Atorvastatin Calcium (Lipitor*) 5 mg PO DAILY [facility]; Protocol Last Admin: 03/30/18 08:19 Dose: 5 mg Coenzyme Q10 (Coenzyme Q10 (Nf)) 1 cap PO DAILY [facility] Last Admin: 03/30/18 08:19 Dose: Not Given Dextrose (D50w Syringe 50 Ml*) 12.5 gm IV PUSH .FOR FS < 60 - SS PRN PRN Reason: FS < 60 Heparin Sodium (Porcine) (Heparin Vial(*)) 5,000 units SUBCUT Q8HR [facility] Last Admin: 03/30/18 12:19 Dose: 5,000 units Insulin Human Lispro (Humalog*) 0 units SUBCUT ACHS [facility]; Protocol Last Admin: 03/30/18 12:18 Dose: 4 unit Magnesium Hydroxide (Milk Of Magnsanchez Liq*) 30 ml PO Q4H PRN PRN Reason: CONSTIPATION Metoprolol Succinate (Toprol Xl Tab*) 50 mg PO DAILY [facility] Last Admin: 03/30/18 08:19 Dose: 50 mg Ondansetron HCl (Zofran Inj*) 4 mg IV Q4H PRN PRN Reason: NAUSEA/VOMITING Oxycodone/Acetaminophen (Percocet 5/325 Tab*) 1 tab PO Q4H PRN PRN Reason: Pain Vital Signs - 8 hr 03/30/18 03/30/18 11:04 15:35 Temperature 97.9 F 99.6 F Pulse Rate 88 84 Respiratory 26 24 Rate Blood Pressure 134/61 123/56 (mmHg) O2 Sat by Pulse 94 93 Oximetry Oxygen Devices in Use Now: None Appearance: lying 45 deg, NAD Eyes: No Scleral Icterus, PERRLA Ears/Nose/Mouth/Throat: NL Teeth, Lips, Gums, Clear Oropharnyx, Mucous Membranes Moist Neck: NL Appearance and Movements; NL JVP, Trachea Midline Respiratory: Symmetrical Chest Expansion and Respiratory Effort, - - decreased in right base Cardiovascular: RRR Abdominal: No Hepatosplenomegaly, - - soft, NTTP, +distention Lymphatic: No Cervical Adenopathy Extremities: No Edema Skin: No Rash or Ulcers Neurological: Alert and Oriented x 3 Result Diagrams: 03/30/18 05:42 03/30/18 05:42 Assess/Plan/Problems-Billing Assessment: 72 yo M h/o NIDDM, HTN/HLD, cirrhosis and recent exudative pleural effusion in January p/w increased malaise and weakness found with leukocytosis urinary retention and recurrent loculated pleural effusion with concern for underlying neoplasm - Patient Problems (1) Neoplasm of lung Comment: Suspected 12 lb unintentional weight loss over the last 4 weeks Suspect neoplasm contributing to presenting symptoms Pleural effusion cytology negative x 1 in January Image guided biopsy tomorrow (2) Leukocytosis Comment: no fever No e/o infection trend hold abx unless change in clinical status suspect elevated in setting of neoplastic process (3) Weakness Comment: Suspect multifactoral including suspected presence of new neoplasm Appreciate neurology assistance Possible paraneoplastic contribution LP depending on timing of mass biopsy Could potentially wait for results from biopsy. To discuss further with patient New neuropathy identified on EMG also likely contributing (4) HTN (hypertension) Comment: Continue metoprolol XL. (5) Type II diabetes mellitus Comment: Lispro SS restart metformin (6) DVT prophylaxis Comment: heparin awaiting biopsy. Hold tonight Lovenox after biopsy and LP (if performed)
[2018-03-30] MEDS: metFORMIN* 1,000 MG TAB PO SCH (17:33)
[2018-03-31] MEDS: Heparin VIAL(*) 5000 UNITS/ML VIAL (FIVE THOUSAND) SUBCUT SCH ×3 (04:21→21:21)
[2018-03-31 06:08] LABS: ABS Basophils 0.2 10^3/ul (0-0.2); ABS Eosinophils 0.3 10^3/ul (0-0.6); ABS Lymphocytes 1.5 10^3/ul (1.0-4.8); ABS Monocytes 1.1 10^3/ul (0-0.8); ABS Neutrophils 15.3 10^3/ul (1.5-7.7); ABS Nucleated RBC 0 10^3/ul; Eosinophil % 1.7 % (0-6); Hematocrit 33 % (42-52); Lymphocyte % 8.2 % (25-47); Mean Corpuscular HGB Conc 33 g/dl (31-36); Mean Corpuscular Hemoglobin 28 pg (27-31); Mean Corpuscular Volume 84 fL (80-94); Nucleated Red Blood Cells % 0.1; Platelet Count 162 10^3/ul (150-450); Red Blood Count 3.92 10^6/ul (4.00-5.40); Red Cell Distribution Width 16 % (10.5-15); White Blood Count 18.4 10^3/ul (3.5-10.8)
[2018-03-31 06:20] LABS: INR 1.19 (0.77-1.02)
[2018-03-31 06:24] LABS: EGFR Non-African American 114.3 (>60)
[2018-03-31] MEDS: Ubidecarenone [Co Q-10] 200 MG PO SCH (07:20)
[2018-03-31] MEDS: Metoprolol Succinate XL TAB* 50 MG PO SCH (09:01)
[2018-03-31] MEDS: Insulin LISPRO* 1 UNITS UNIT SUBCUT SCH ×4 (09:02→21:27)
[2018-03-31] MEDS: Atorvastatin* 10 MG TAB PO SCH (09:02)
[2018-03-31] MEDS: metFORMIN* 1,000 MG TAB PO SCH ×2 (09:02→17:24)
--- NOTE | 2018-03-31 10:24 | PN ---
NEUROLOGICAL FOLLOWUP NOTE: DATE OF FOLLOWUP: 03/30/18 PATIENT OF: Dr. Granados. HISTORY OF PRESENT ILLNESS: Jose Alberto notes that his walking is unchanged and he has no new weakness or other symptoms. MEDICATIONS: His medications are unchanged from before and they include his: 1. Insulin. 2. Metoprolol 50 mg daily. 3. Lipitor 5 mg daily. 4. Albuterol p.r.n. PHYSICAL EXAMINATION: Temperature 99.6, pulse 84, respirations 24, blood pressure 123/56. He is alert and oriented with normal speech and comprehension. Cranial nerves II through XII are intact. Motor exam revealed normal tone and strength. Chest: Clear. Cardiovascular: Regular rate and rhythm. Abdomen: Soft, positive bowel sounds. DIAGNOSTIC STUDIES: His MRI scan with and without contrast is normal. 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 ASSESSMENT/PLAN: I had spoken to Dr. Don and the hospitalist nurse practitioner to arrange for his spinal tap; however, given his somewhat prolonged INR, the doctor doing the procedure decided to hold off until this could be corrected. I discussed this with the patient and the hospitalist the spinal tap should be done for routine studies plus cytology and _ paraneoplastic panel, it is possible that his neuropathy, bladder dysfunction could be secondary to a paraneoplastic syndrome. This will be the next point in his neurologic diagnostic workup. I have a call with Dr. Granados to discuss. [id number]/[facility] #: [id number] [facility] HOSPITALBenja
[2018-03-31] MEDS ORDERED: fentaNYL* 50 MCG/ML 2 ML VIAL (100 MCG VIAL) ONE (14:06)
[2018-03-31] MEDS ORDERED: Naloxone* 0.4 MG/ML 1 ML VIAL ONE (14:07)
--- NOTE | 2018-03-31 15:22 | PN ---
Subjective Date of Service: 03/31/18 Interval History: Feeling well. Walking in room. Still weak but no other complaints. Appropriately anxious in anticipation of biopsy and results Objective Active Medications: Acetaminophen (Tylenol Tab*) 650 mg PO Q4H PRN PRN Reason: FEVER/PAIN Al Hydrox/Mg Hydrox/Simethicone (Maalox Plus*) 30 ml PO Q6H PRN PRN Reason: INDIGESTION Albuterol (Ventolin 2.5 Mg/3 Ml Neb.Chen*) 2.5 mg INH [id number] AWAKE PRN PRN Reason: sob/wheezing Atorvastatin Calcium (Lipitor*) 5 mg PO DAILY [facility]; Protocol Last Admin: 03/31/18 09:02 Dose: 5 mg Coenzyme Q10 (Coenzyme Q10 (Nf)) 1 cap PO DAILY [facility] Last Admin: 03/31/18 07:20 Dose: Not Given Dextrose (D50w Syringe 50 Ml*) 12.5 gm IV PUSH .FOR FS < 60 - SS PRN PRN Reason: FS < 60 Finasteride (Proscar Tab*) 5 mg PO DAILY [facility] Heparin Sodium (Porcine) (Heparin Vial(*)) 5,000 units SUBCUT Q8HR [facility] Last Admin: 03/31/18 12:01 Dose: Not Given Insulin Human Lispro (Humalog*) 0 units SUBCUT [facility]; Protocol Last Admin: 03/31/18 12:01 Dose: 2 unit Magnesium Hydroxide (Milk Of Magnesia Liq*) 30 ml PO Q4H PRN PRN Reason: CONSTIPATION Metformin HCl (Glucophage*) 1,000 mg PO BID WITH MEALS [facility] Last Admin: 03/31/18 09:02 Dose: 1,000 mg Metoprolol Succinate (Toprol Xl Tab*) 50 mg PO DAILY [facility] Last Admin: 03/31/18 09:01 Dose: 50 mg Ondansetron HCl (Zofran Inj*) 4 mg IV Q4H PRN PRN Reason: NAUSEA/VOMITING Oxycodone/Acetaminophen (Percocet 5/325 Tab*) 1 tab PO Q4H PRN PRN Reason: Pain Tamsulosin HCl (Flomax Cap*) 0.4 mg PO BEDTIME [facility] Vital Signs - 8 hr 03/31/18 03/31/18 03/31/18 07:34 07:37 10:52 Temperature 98.3 F 99.2 F Pulse Rate 82 82 Respiratory 20 18 21 Rate Blood Pressure 111/51 124/57 (mmHg) O2 Sat by Pulse 95 93 Oximetry 03/31/18 14:32 Temperature Pulse Rate Respiratory 20 Rate Blood Pressure (mmHg) O2 Sat by Pulse Oximetry Oxygen Devices in Use Now: None Appearance: NAD Eyes: No Scleral Icterus, PERRLA Ears/Nose/Mouth/Throat: NL Teeth, Lips, Gums, Clear Oropharnyx Neck: NL Appearance and Movements; NL JVP, Trachea Midline Respiratory: Symmetrical Chest Expansion and Respiratory Effort, Clear to Auscultation Cardiovascular: NL Sounds; No Murmurs; No JVD, RRR Abdominal: - - +bs, soft, +distended, NTTP Lymphatic: No Cervical Adenopathy Extremities: No Edema Skin: No Rash or Ulcers Neurological: Alert and Oriented x 3 Lines/Tubes/Other Access: Clean, Dry and Intact Rucker Result Diagrams: 03/31/18 05:47 03/31/18 05:44 Microbiology and Other Data: Microbiology 03/30/18 05:49 Aerobic Blood Culture - Preliminary Blood Venous No Growth Day 1 Anaerobic Blood Culture - Preliminary No Growth Day 1 03/30/18 05:42 Aerobic Blood Culture - Preliminary Blood Venous No Growth Day 1 Anaerobic Blood Culture - Preliminary No Growth Day 1 Assess/Plan/Problems-Billing Assessment: 72 yo M h/o NIDDM, HTN/HLD, cirrhosis and recent exudative pleural effusion in January p/w increased malaise and weakness found with leukocytosis urinary retention and recurrent loculated pleural effusion with concern for underlying neoplasm - Patient Problems (1) Neoplasm of lung Comment: Suspected 12 lb unintentional weight loss over the last 4 weeks Suspect neoplasm contributing to presenting symptoms Pleural effusion cytology negative x 1 in January Image guided biopsy today 03/31 (2) Leukocytosis Comment: no fever No e/o infection trend hold abx unless change in clinical status suspect elevated in setting of neoplastic process (3) Weakness Comment: Suspect multifactoral including suspected presence of new neoplasm Appreciate neurology assistance Possible paraneoplastic contribution - check paraneoplastic panel (serum) Hold on LP for now. Reevaluate based on symptoms New neuropathy identified on EMG also likely contributing (4) HTN (hypertension) Comment: Continue metoprolol XL. (5) Type II diabetes mellitus Comment: Lispro SS metformin (6) Urinary retention Comment: unclear etiology start flomax and finasteride check lumbar MRI to r/o metastatic malignancy (7) DVT prophylaxis Comment: heparin
[2018-03-31] MEDS ORDERED: Gadoteridol* (CONTRAST) 279.3 MG/ML 10 ML IV ONE (15:27)
--- NOTE | 2018-03-31 18:29 | RAD ---
INDICATION: Multiple right hemithorax pleural masses identified on CT. Request is made for sonographic imaging to determine feasibility of ultrasound-guided biopsy. COMPARISON: CT of the chest dated March 29, 2018 TECHNIQUE: Real time ultrasound images of the right hemithorax were acquired with cruz scale and Doppler color flow imaging. FINDINGS: Multiple sonographic images reveal multiple soft tissue lesions in the right hemithorax in the background of a moderate to large right pleural effusion. Corresponding to prior CT imaging there is a soft tissue mass adherent to the right lateral inner chest wall. IMPRESSION: Sonographic imaging reveals a moderate right-sided pleural effusion in the presence of multiple soft tissue masses corresponding to recent CT of the chest.
--- NOTE | 2018-03-31 19:59 | RAD ---
Indication: Urinary retention. Assess for lumbar spine metastasis. Comparison: July 22, 2016 CT Technique: e-SENSa 1.5 Amanda [id number] with GEM suite. Noncontrast and contrast-enhanced MRI lumbar sacral spine. 18 mL ProHance administered IV. Report: Unremarkable conus medullaris and cauda equina. No intra or extra-axial lesions evident within the spinal canal. Fatty type reactive endplate change most prominent at L5-S1. T1 and T2 hyperintense lesion at the S1 vertebral body noted consistent with a benign osseous hemangioma. Chronic appearing bilateral L5 spondylolysis with associated grade 2 L5-S1 anterior spondylolisthesis. Vertebral alignment is otherwise normal. T12-L1: Unremarkable disc level for age without acquired spinal stenosis. L1-L2: Unremarkable disc level for age without acquired spinal stenosis. L2-L3: Unremarkable disc level for age without acquired spinal stenosis. L3-L4: Disc desiccation without significant disc space narrowing. Minimal LEFT paracentral to LEFT foraminal disc protrusion which results in slight LEFT foraminal stenosis. L4-L5: Unremarkable disc. Mild to moderate facet joint osteoarthritis without significant resulting spinal stenosis. L5-S1: Uncovering of the intervertebral disc due to the grade 2 anterior spondylolisthesis and rostrocaudal subluxation due to disc height loss results in moderate RIGHT and severe LEFT foraminal stenosis. Negative for central canal stenosis. IMPRESSION: #. No evidence for lumbar sacral spine metastatic disease. #. Chronic appearing L5 bilateral spondylolysis with associated grade 2 anterior spondylolisthesis. Moderate RIGHT and severe LEFT foraminal stenosis at L5-S1. #. Slight LEFT foraminal stenosis at L3-L4.
[2018-03-31] MEDS ORDERED: Tamsulosin CAP* 0.4 MG PO SCH (21:00)
--- NOTE | 2018-04-01 04:38 | PN ---
NEUROLOGICAL FOLLOWUP: DATE OF SERVICE: 03/31/18 PATIENT OF: Dr. Granados. HISTORY: He has no further changes. He still has a slight off sensation in his legs. There has been no change in his urination. There has been no new headaches, visual symptoms, numbness, or weakness. His medications continued to be his Maalox p.r.n., Ventolin p.r.n., Lipitor 5 mg daily, Proscar 5 mg daily, metoprolol 50 mg daily, Flomax 0.4 at bedtime. PHYSICAL EXAMINATION: On exam, temperature 98.6, pulse 85, respiratory rate 22 , blood pressure 131/52. He is alert and oriented with normal speech and comprehension. Cranial nerves II through XII intact. Motor exam revealed normal tone and strength. Chest: Clear. Cardiovascular: Regular rate and rhythm. Abdomen: Soft. Positive bowel sounds. ASSESSMENT AND PLAN: I discussed with Dr. Granados and the patient the pros and cons of doing a spinal tap since he is having a procedure to rule out the possible malignancy. If this takes priority, we are going to be sending up paraneoplastic antibodies on the serum, but the patient knows that we may be doing a spinal tap in the future especially if his neurovascular symptoms worsen. Since we are not doing the spinal tap, it is possible that he could less likely have a malignancy in his lumbar spine area causing bilateral lumbosacral plexopathy and therefore we are getting an MRI scan with and without contrast of his lumbar spine. I will be seeing him depending on when he goes home. I will be seeing him in the next few weeks' time in followup and if he has any neurological deterioration, I will see him sooner. Thank you for sharing his case. [id number]/[facility] #: [id number] [facility] HOSPITALBenja
[2018-04-01 06:00] LABS: Hematocrit 29 % (42-52); Hemoglobin 9.7 g/dl (14.0-18.0); Mean Corpuscular HGB Conc 34 g/dl (31-36); Mean Corpuscular Hemoglobin 28 pg (27-31); Mean Corpuscular Volume 84 fL (80-94); Mean Platelet Volume 8.8 um3 (7.4-10.4); Platelet Count 126 10^3/ul (150-450); Red Blood Count 3.42 10^6/ul (4.00-5.40); Red Cell Distribution Width 16 % (10.5-15); White Blood Count 17.2 10^3/ul (3.5-10.8)
[2018-04-01 06:20] LABS: EGFR Non-African American 122.6 (>60)
[2018-04-01] MEDS: Heparin VIAL(*) 5000 UNITS/ML VIAL (FIVE THOUSAND) SUBCUT SCH (06:25)
[2018-04-01 06:27] LABS: ABS Basophils 0.1 10^3/ul (0-0.2); ABS Eosinophils 0.2 10^3/ul (0-0.6); ABS Lymphocytes 1.4 10^3/ul (1.0-4.8); ABS Monocytes 1.1 10^3/ul (0-0.8); ABS Neutrophils 14.3 10^3/ul (1.5-7.7); ABS Nucleated RBC 0 10^3/ul; Eosinophil % 1.2 % (0-6); Lymphocyte % 8.3 % (25-47); Nucleated Red Blood Cells % 0
[2018-04-01] MEDS ORDERED: Finasteride TAB* 5 MG PO SCH (09:00)
[2018-04-01] MEDS: metFORMIN* 1,000 MG TAB PO SCH (09:03)
[2018-04-01] MEDS: Metoprolol Succinate XL TAB* 50 MG PO SCH (09:03)
[2018-04-01] MEDS: Insulin LISPRO* 1 UNITS UNIT SUBCUT SCH ×2 (09:03→12:25)
[2018-04-01] MEDS: Atorvastatin* 10 MG TAB PO SCH (09:03)
[2018-04-01] MEDS: Ubidecarenone [Co Q-10] 200 MG PO SCH (09:04)
[2018-04-01 11:25] VITALS: BP 126/56
--- NOTE | 2018-04-02 03:39 | DS ---
CC: Dr. Light; Dr. Acosta; Dr. Gutierrez; Malu Zamorano MD * DISCHARGE SUMMARY: DATE OF ADMISSION: 03/29/18 DATE OF DISCHARGE: 04/01/18 PRIMARY CARE PROVIDER: Dr. Light. PRIMARY DIAGNOSIS: Lung mass, status post biopsy. SECONDARY DIAGNOSES: Include: 1. Urinary retention. 2. Generalized weakness with peripheral neuropathy. 3. Hypertension. 4. Non-insulin dependent diabetes mellitus. 5. Hyperlipidemia. MEDICATIONS ON DISCHARGE: Include: 1. Co-Q10 of 200 mg daily. 2. Pravastatin 20 mg daily. 3. Metoprolol succinate 50 mg daily. 4. Metformin 1000 mg twice daily. 5. Tamsulosin 0.4 mg at bedtime. 6. Finasteride 5 mg daily. Please note the addition of 2 medications above, Flomax and Proscar. DISPOSITION ON DISCHARGE: Home. Followups were made with Dr. Zamorano, Dr. Light, and Dr. Acosta on discharge with instructions to follow up with Dr. Gutierrez in 4 to 6 weeks. PERTINENT LABORATORY DATA: White blood cell count on presentation 20.1, on discharge 17.2; 83.4% neutrophils. Platelets on discharge are 126,000. Prostate specific antigen is 4.66. CRP 163. Lyme disease serology is negative. Blood cultures are negative. PERTINENT IMAGING STUDIES: Brain MRI: No abnormal enhancing lesions are identified. No restricted diffusion is noted. Lumbar spine MRI: No evidence for lumbosacral spine metastatic disease. Chronic appearing L5 bilateral spondylosis with associated grade 2 anterior spondylolisthesis. Moderate right and severe left foraminal stenosis at L5-S1. Liver ultrasound, impression: Small amount of ascites. Distended gallbladder. Heterogeneous nodule liver consistent with cirrhosis. Distended portal vein consistent with portal hypertension. Splenomegaly. Chest CT, impression: Loculated right pleural effusion with nodularity in the right base consistent with neoplastic process. Findings are similar to that on 02/06/18. Pathology pending, discussed with lab, should be resultant by 04/04/18. HISTORY OF PRESENT ILLNESS AND HOSPITAL COURSE: This 72-year-old man with past medical history as outlined in the history of present illness on the day of admission presented to the hospital with a sensation of generalized weakness and fatigue as well as feeling as if his legs were going to go off from under him and fall. He was found to have a leukocytosis as well as urinary retention requiring Rucker catheter placement. Extensive imaging above indicated recurrent loculated right pleural effusion. He underwent an ultrasound-guided lung mass biopsy on 03/31/[address] Brown. Pathology is pending at the time of discharge. He was seen in consultation with Neurology/Dr. Acosta. There was concern that his weakness/urinary retention may be secondary to a paraneoplastic process. An LP was __deferred____ at the time of our admission while pathology from lung biopsy was pending. Paraneoplastic serum panel was sent to outside labs and results are pending at the time of his discharge. A lumbar MRI looking for any evidence of metastasis causing urinary retention was performed and negative. The patient improved during the course of the hospital stay, was able to ambulate, generally still so weak and had no evidence that he would fall. He did have EMGs whose official report is not in the computer at this time; however, in discussion with Dr. Acosta, did indicate axonal pathology. Preliminary evidence from lung biopsy would indicate an underlying malignancy; however, type and further information is purely speculative at this time. An underlying pulmonary malignancy would be explanatory for the patient' s generalized weakness, weight loss, recurrent pleural effusion with underlying mass and leukocytosis. However, unclear how this __contributes to____ his urinary retention unless this was corollary increased worsening of BPH and/or paraneoplastic syndrome. All of the above was discussed with the patient. At followup, please; 1. Ensure he follows up with Oncology for further evaluation of biopsy results. 2. Please follow paraneoplastic panel. 3. Can consider repeat white blood cell count to follow for evidence of improvement or worsening. The patient had no fevers during the course of the hospital stay and no localizing symptoms for infection. He was seen in consultation with Dr. Inman from Infectious Disease, who did not recommend antibiotics at this time. 4. The patient should follow up with Dr. Tran and Dr. Corea for removal of his Rucker catheter in 4 to 6 weeks after initiation of his tamsulosin and Flomax. 5. The patient should follow up with Neurology for further evaluation of weakness and abnormal EMGs. A followup appointment was made with Dr. Acosta. Reasons to return to the hospital including but not limited to recurrent or worsening symptoms, chest pain, shortness of breath, nausea, vomiting, lightheadedness, fevers, localizing infectious symptoms discussed with the patient and his . They acknowledged understanding. TIME SPENT: Greater than 75 minutes were spent on the discharge of the patient , greater than half was spent [id number] with the patient. [id number]/[facility] #: [id number] MTDD
--- NOTE | 2018-04-07 17:09 | RAD ---
INDICATION: Thoracic mass abutting the right lateral chest wall that is visible with sonographic imaging. COMPARISON: CT of the chest February 27, 2018 PROCEDURE NOTE AND IMAGING FINDINGS: The benefits of the and risks of procedure explained to the patient. The patient consented for the exam. The patient was brought to the ultrasound suite and multiple images of the right hemithorax were obtained. The pleural-based mass corresponding to prior imaging was identified overlying the lateral upper right hemithorax. The site was marked. A formal time out was performed before beginning the procedure. The patient was prepped and draped in the usual sterile fashion. The patient?s posterior chest wall was anesthetized with 1% lidocaine. Under sonographic control a fine needle aspiration was acquired utilizing a 20 gauge needle. The attending cytopathologist indicated the sample was adequate for cytologic diagnosis. According to the same technique, an additional fine-needle aspiration was acquired and provided to the attending cytopathologist. Postbiopsy imaging does not show any excessive bleeding or signs of a pneumothorax. The patient tolerated the procedure without incident. IMPRESSION: Uncomplicated ultrasound-guided thoracic biopsy as described in the body of the report.
== END 2018-04-01 16:20 | disposition home or self-care (01) | DRG 187 ==
LOC: ED 06:58 → MED 09:22 → OBSVTOIN 03-30 16:58
PROVIDERS: ADMIT Internal Medicine; ATTEND Internal Medicine
PROC: 0W993ZX Drainage of Right Pleural Cavity, Percutaneous Approach, Diagnostic (ICD-10-PCS; principal; 2018-03-31)
PROC: 0B9F3ZX Drainage of Right Lower Lung Lobe, Percutaneous Approach, Diagnostic (ICD-10-PCS; 2018-03-31)
DX: J90 Pleural effusion, not elsewhere classified (principal); K76.6 Portal hypertension; R91.8 Other nonspecific abnormal finding of lung field; R33.9 Retention of urine, unspecified; I10 Essential (primary) hypertension; E11.42 Type 2 diabetes mellitus with diabetic polyneuropathy; E78.5 Hyperlipidemia, unspecified; R53.1 Weakness; K74.60 Unspecified cirrhosis of liver; D72.829 Elevated white blood cell count, unspecified; Z79.84 Long term (current) use of oral hypoglycemic drugs; Z79.899 Other long term (current) drug therapy; Z88.1 Allergy status to other antibiotic agents; Z88.2 Allergy status to sulfonamides; Z88.8 Allergy status to other drugs, medicaments and biological substances; Z82.49 Family history of ischemic heart disease and other diseases of the circulatory system; Z80.0 Family history of malignant neoplasm of digestive organs
CPT/HCPCS: 10022; 36415; 70450; 70553; 71046; 71250; 72158; 76604; 76705; 76942; 80048; 80053; 81003; 83519; 83520; 84153; 85025; 85610; 86140; 86255; 86256; 86618; 87040; 88172; 88173; 88305; 88341; 88342; 95885; 95911; 99283; A9270-GY; A9579; G0103; G0378; J1644; J2310; J3010

== ENCOUNTER 2018-04-06 07:44 | Inpatient (IN) | payer MEDICARE ==
--- NOTE | 2018-04-06 08:04 | ED ---
Shortness of Breath - HPI Summary HPI Summary: This is Dayna smith, documenting for attending Abel Pulido MD. This patient is a 72 year old M presenting to [facility] accompanied by his and brother with a chief complaint of sudden SOB, dizziness, weakness, and fluid retention for the past week. 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 states he has been unable to urinate and has been using a catheter for the past week. Family states they have not yet received the results. Family reports hx of pleural effusion in January of 2018. Denies at home O2. Denies PMHX of CHF or blood clots. Patients oncologist is Dr. Zamorano. - History of Current Complaint Chief Complaint: EDShortnessOfBreath Time Seen by Provider: 04/06/18 07:56 Hx Obtained From: Patient, Family/Education Managers Onset/Duration: Lasting Weeks Timing: Constant Dyspnea At: Rest Associated Signs & Symptoms: Dizzy - and weakness, Edema Related History: Similar Episode - Allergy/Home Medications Allergies/Adverse Reactions: Allergies Allergy/AdvReac Type Severity Reaction Status Date / Time gluten Allergy Unknown Verified 04/06/18 06:53 Reaction Details Sulfa (Sulfonamide Allergy as a child Verified 04/06/18 06:53 Antibiotics) PMH/Surg Hx/FS Hx/Imm Hx Endocrine/Hematology History: Reports: Hx Diabetes - type 2 Cardiovascular History: Reports: Hx Hypercholesterolemia, Hx Hypertension Denies: Hx Congestive Heart Failure, Hx Pacemaker/ICD Respiratory History: Denies: Hx Asthma History: Reports: Hx Kidney Stones Denies: Hx Renal Disease Musculoskeletal History: Reports: Hx Arthritis - psoriatic arthritis Sensory History: Reports: Hx Contacts or Glasses - glasses on, Hx Hearing Aid - REMOVED Opthamlomology History: Reports: Hx Contacts or Glasses - glasses on Psychiatric History: Denies: Hx Panic Disorder - Surgical History Surgery Procedure, Year, and Place: Carpal tunnel releases bilateral. kidney stones Hx Anesthesia Reactions: No Infectious Disease History: No Infectious Disease History: Denies: Traveled Outside the [place] in Last 30 Days - Family History Known Family History: Positive: Hypertension, Diabetes - Social History Alcohol Use: Rare Substance Use Type: Reports: None Smoking Status (MU): Former Smoker Amount Used/How Often: smoked cigars Review of Systems Positive: Other - dizziness, fluid retention Positive: Shortness Of Breath Positive: Weakness All Other Systems Reviewed And Are Negative: Yes Physical Exam - Summary Physical Exam Summary: GENERAL: Patient is a well developed and nourished male who is ill-appearing. Patient is not in any acute respiratory distress. HEAD AND FACE: Normocephalic EYES: PERRLA, EOMI x 2. EARS: Hearing grossly intact. MOUTH: Oropharynx within normal limits. NECK: Supple, trachea is midline, no adenopathy, no JVD, no carotid bruit. CHEST: Symmetric, no tenderness at palpation LUNGS: Clear to auscultation bilaterally. No wheezing or crackles. Decreased breath sounds bilaterally. CVS: Tachycardic rate and regular rhythm, S1 and S2 present, no murmurs or gallops appreciated. ABDOMEN: Abdomen is distended and non-tender. Bowel sounds are normal. No abdominal abnormal pulsations. EXTREMITIES: Full ROM in all major joints, no edema, no cyanosis or clubbing. NEURO: Alert and oriented x 3. No acute neurological deficits. Speech is normal and follows commands. SKIN: Dry and warm Triage Information Reviewed: Yes Vital Signs On Initial Exam: Initial Vitals Temp Pulse Resp BP Pulse Ox 96.9 F 121 24 131/66 98 04/06/18 07:50 04/06/18 07:50 04/06/18 07:50 04/06/18 07:50 04/06/18 07:50 Vital Signs Reviewed: Yes Diagnostics - Vital Signs Vital Signs Temp Pulse Resp BP Pulse Ox 04/06/18 07:50 96.9 F 121 24 131/66 98 - Laboratory Result Diagrams: 04/07/18 04:15 04/07/18 04:15 Lab Statement: Any lab studies that have been ordered have been reviewed, and results considered in the medical decision making process. - Radiology CXR Radiology Interpretation Completed By: Radiologist - RIGHT PLEURAL EFFUSION WITH RIGHT BASILAR ATELECTASIS VERSUS CONSOLIDATION. ED Physician has reviewed this report. - EKG 0818 Cardiac Rate: Tachycardia - 120 BPM EKG Rhythm: Sinus Tachycardia EKG Interpretation: borderline ST depression throughout Course/Dx - Course Course Of Treatment: 72 year old M presenting to [facility] accompanied by his and brother with a chief complaint of sudden SOB, dizziness, weakness, and fluid retention for the past week. Patient is currently being worked up for a lung tumor. Bloodwork is remarkable for a Hgb of 6.6, which is decreased from previous( 3 days ago at 9), elevated lactic acid of 16, WBC of 64, anion gap of 25, and bicarb of 10.Pt had dark BM in ED; stool-coag done and is positive for blood. EKG reveals Sinus tachycardia of 120 BPM, with borderline ST depression throughout.CXR is concerning for PNA. UA consistent with UTI. Pt covered broad with IV antibiotics. Patient is given IV fluids. Started PASQUALE drip. Discussed case with Oncology, consulted GI, and subsequently admitted patient to intensive care unit. Patient is also to be transfused 2 units of pack RBC. - Diagnoses Provider Diagnoses: Severe sepsis, GI bleed - Physician Notifications Discussed Care of Patient With: Manpreet Randolph - oncologist Time Discussed With Above Provider: 09:14 Instructed by Provider To: Other - notified of patient - Critical Care Time Critical Care Time: 75-104 min Discharge - Sign-Out/Discharge Documenting (check all that apply): Patient Departure - Discharge Plan Condition: Disposition: ADMITTED TO [facility] - Billing Disposition and Condition Condition: Disposition: Admitted to [facility] Consult Consult: At 09:52, Dr. Cowart, structural iron erector, is admitted to ICU. At 09:10, the GI Physician fer was informed of patient's current GI bleed.
[2018-04-06 08:17] LABS: Urine Appearance Clear; Urine Blood 3+ (Negative); Urine Color Yellow; Urine Ketones 1+ (Negative); Urine Protein Negative (Negative); Urine Red Blood Cell 3+(>10/hpf) (Absent); Urine Specific Gravity 1.023 (1.010-1.030); Urine Urobilinogen Negative (Negative); Urine White Blood Cell 2+(11-20/hpf) (Absent)
[2018-04-06 08:45] LABS: Hematocrit 22 % (42-52); Hemoglobin 6.6 g/dl (14.0-18.0); Mean Corpuscular HGB Conc 30 g/dl (31-36); Mean Corpuscular Hemoglobin 27 pg (27-31); Mean Corpuscular Volume 88 fL (80-94); Mean Platelet Volume 9.6 um3 (7.4-10.4); Platelet Count 310 10^3/ul (150-450); Red Blood Count 2.46 10^6/ul (4.00-5.40); Red Cell Distribution Width 17 % (10.5-15); White Blood Count 64.1 10^3/ul (3.5-10.8)
[2018-04-06 08:52] LABS: INR 1.46 (0.77-1.02)
[2018-04-06 09:01] LABS: EGFR Non-African American 80.6 (>60)
[2018-04-06] MEDS ORDERED: Insulin REGULAR(*) 1 UNITS UNIT IV PUSH ONE (09:26)
--- NOTE | 2018-04-06 09:26 | RAD ---
HISTORY: SOB COMPARISONS: March 29, 2013 VIEWS: 1: frontal portable view of the chest at 9:02 AM FINDINGS: LINES AND TUBES: None. CARDIOMEDIASTINAL SILHOUETTE: The cardiomediastinal silhouette is normal for portable technique. PLEURA: There is a small to moderate right pleural effusion. LUNG PARENCHYMA: There is confluent alveolar opacification of the right lung base. ABDOMEN: The upper abdomen is clear. There is no subphrenic gas. BONES AND SOFT TISSUES: No bone or soft tissue abnormalities are noted. IMPRESSION: RIGHT PLEURAL EFFUSION WITH RIGHT BASILAR ATELECTASIS VERSUS CONSOLIDATION.
[2018-04-06] MEDS ORDERED: Dextrose 50% VIAL 50 ml IV ONE (09:28)
[2018-04-06] MEDS ORDERED: Pantoprazole IV* 40 MG IV ONE (09:31)
[2018-04-06] MEDS ORDERED: NS 0.9% 1000 ML* 1,000 ML IV ONE ×3 (09:32→15:43)
[2018-04-06] MEDS ORDERED: Vancomycin(*) 1,000 MG in NS 0.9% 250 ML* 250 ML IVPB ONE (09:34)
[2018-04-06] MEDS ORDERED: Piperacillin/Tazobac ADVAN(*) 3.375 GM in NS 0.9% 100 ML* 100 ML IVPB ONE (09:34)
[2018-04-06 09:41] LABS: ABS Basophils 0.5 10^3/ul (0-0.2); ABS Eosinophils 0.1 10^3/ul (0-0.6); ABS Lymphocytes 3.8 10^3/ul (1.0-4.8); ABS Neutrophils 56.6 10^3/ul (1.5-7.7); ABS Nucleated RBC 0 10^3/ul; Eosinophil % 0.1 % (0-6); Nucleated Red Blood Cells % 0
[2018-04-06] MEDS ORDERED: Iodixanol* (CONTRAST) 320 MG/ML 100 ML SDV IV ONE (09:43)
[2018-04-06] MEDS ORDERED: Dextrose 50% Syringe 50 ML* 25 GM/50 ML SYRINGE ONE (09:57)
[2018-04-06] MEDS ORDERED: NS 0.9% 250 ML* 250 ML ONE (10:27)
[2018-04-06] MEDS ORDERED: Sodium Bicarbonate 8.4%* 50 ML SYRINGE IV ONE ×2 (10:36→13:27)
[2018-04-06] MEDS ORDERED: Zosyn per Pharmacy* NOTE FOLLOW UP SCH (11:00)
[2018-04-06] MEDS ORDERED: Octreotide Acetate* 50 MCG in NS 0.9% 50 ML* 50 ML IVPB ONE (11:00)
--- NOTE | 2018-04-06 11:15 | HP ---
History of Present Illness - History of Present Illness Reason for Visit: shortness of breath History of Present Illness: 72M with htn, hld, dm, cirrhosis, recent admission for weakness presents with shortness of breath. The patient states that his has been going on for the past 48 hours. It became progressively worse. He also notes black tarry bowel movements. In the ER he was noted to have a hgb of 6, wbc was 64, bicarb was 10 , and his lactate was 16. The patient was started on iv fluids. Transfusion was ordered. GI and Oncology were consulted in the ER. Of note, the patient was admitted for weakness on the 29 of March which was thought to be possible paraneoplastic syndrome 2/2 to a lung mass and associated pleural effusion. The lung mass was biopsied, however, he was discharged prior to availablility of the results. 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 During that admission the patient also had urinary retention and was discharged with a mcpherson in place. 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: Carpal Tunnel Syndrome Heme/Onc: Cancer Hepatobiliary: Cirrhosis Endocrine: Diabetes - Past Family History Family History: Cancer, DM, Hypertension - Past Social History Smoke: No Alcohol: None Drugs: None Lives: With Family Domestic Violence: Negative Review of Systems - Review of Systems Constitutional: Positive: Sweats, Weakness Eyes: Negative: Pain, Vision Change, Conjunctivae Inflammation, Eyelid Inflammation, Redness, Other ENT: Negative: Ear Pain, Ear Discharge, Nose Pain, Nose Discharge, Nose Congestion, Mouth Pain, Mouth Swelling, Throat Pain, Throat Swelling, Other Respiratory: Positive: Shortness of Breath, SOB with Excertion Cardiovascular: Negative: Chest Pain Gastrointestinal: Positive: Nausea, Melena Genitourinary: Positive: Dysuria, Retention Musculoskeletal: Negative: Neck Pain, Shoulder Pain, Arm Pain, Back Pain, Hand Pain, Leg Pain, Foot Pain, Other Skin: Negative: Rash, Lesions, [place], Bruising, Other Neurological: Positive: Weakness - Medications/Allergies Allergies/Adverse Reactions: Allergies Allergy/AdvReac Type Severity Reaction Status Date / Time gluten Allergy Unknown Verified 04/06/18 06:53 Reaction Details Sulfa (Sulfonamide Allergy as a child Verified 04/06/18 06:53 Antibiotics) Medications: Current Medications Pantoprazole Sodium 80 mg/ (Sodium Chloride) 250 mls @ 25 mls/hr IV Q10H [facility] Octreotide Acetate 50 mcg/ (Sodium Chloride) 50.5 mls @ 202 mls/hr IVPB ONCE ONE Stop: 04/06/18 11:14 Octreotide Acetate 500 mcg/ (Sodium Chloride) 101 mls @ 5.05 mls/hr IVPB Q20H [facility] Piperacillin Sod/Tazobactam (Sod 3.375 gm/ Sodium Chloride) 100 mls @ 25 mls/ hr IVPB Q8H [facility] Pharmacy Consult (Zosyn Per Pharmacy*) 1 note FOLLOW UP .ZOSYN PER PHARMACY [facility] Exam - Exam Vital Signs: Vital Signs (72 hours) 04/06/18 04/06/18 04/06/18 07:50 08:00 08:20 Temperature 96.9 F Pulse Rate 121 121 120 Respiratory 24 33 24 Rate Blood Pressure 131/66 145/62 (mmHg) O2 Sat by Pulse 98 98 98 Oximetry 04/06/18 04/06/18 04/06/18 09:00 09:28 10:00 Temperature Pulse Rate 126 125 Respiratory 31 32 38 Rate Blood Pressure 139/63 (mmHg) O2 Sat by Pulse 99 99 Oximetry 04/06/18 10:23 Temperature Pulse Rate Respiratory 34 Rate Blood Pressure 150/81 (mmHg) O2 Sat by Pulse Oximetry General: Alert, Moderate distress HEENT: Atraumatic, PERRLA, EOMI Lungs: Clear to auscultation - +dec bs at right base, Other Cardiovascular: Regular rate, Other - tachy Abdomen: Normal bowel sounds, Soft, Other - +distention, +mcpherson in place Extremities: No clubbing, No cyanosis, No edema, Normal pulses Skin: No rashes, No significant lesion Neurological: Normal speech, Cranial nerves 3-12 NL Psych/Mental Status: Mental status NL Assessment/Plan - Assessment/Plan Plan: 72M with htn, hld, dm, cirrhosis, newly diagnosed sarcomatoid carcinoma of the lung presents with severe lactic acidosis 2/2 gi bleed? vs sepsis from chronic indwelling mcpherson Neuro - weakness - 2/2 underlying malignancy vs paraneoplasic syndrome? vs sepsis - MRI brain and spine negative from previous admission - paraneoplastic panel sent out and is pending CV - tachycardia - 2/2 volume depletion/gi bleed/sepsis - bp ok - iv hydration pulm - respiratory distress - 2/2 metabolic acidosis and malignancy and effusion - patient is dni - bipap prn - avoid medications that may cause respiratory depression ID - sepsis 2/2 uti from chronic indwelling mcpherson - iv hydration - empiric vanco/zosyn - check blood/urine cultures - serial lactates GI - gi bleed, h/o cirrhosis - fobt positive - npo - ppi/octreotide drips - gi consult Renal - metabolic acidosis - 2/2 gi bleed vs sepsis vs malignancy - iv hydration - bicarb 100mEq now - serial abg and bmp Heme - anemia, lung cancer - serial cbc - transfuse 2units prbc now - oncology consult - palliative care consult - pain control Endocrine - dm - check fs, niss Lines - PICC (04/06/18) PPx - scds, ppi gtt DNR/DNI Admit to ICU Critical Care Time: 80 mins
[2018-04-06] MEDS ORDERED: Dextrose 50% Syringe 50 ML* 25 GM/50 ML SYRINGE IV PUSH PRN (11:37)
[2018-04-06] MEDS ORDERED: NS 0.9% 1000 ML* 2,000 ML IV ONE (12:12)
--- NOTE | 2018-04-06 12:12 | RAD ---
INDICATION: Chest and abdominal pain. Right-sided infiltrate and effusion on chest x-ray. Known metaplastic carcinoma Evaluate for PE. Evaluate for abdominal pathology. COMPARISON: Chest x-ray same date; CT chest March 29, 2018 TECHNIQUE: Axial source images were obtained from the thoracic inlet to the symphysis pubis following administration of oral and intravenous contrast. 100 mL Visipaque [address] angiographic technique was utilized for imaging the chest. Coronal and sagittal reconstructed images were acquired. CHEST FINDINGS: Neck/thyroid: The visualized neck to include the thyroid appear normal. Chest wall: There are no acute abnormalities of the bony thorax or chest wall. There is a right-sided PICC catheter terminating in the superior vena cava. There is no supraclavicular, infraclavicular, or axillary lymphadenopathy. Lungs : The left lung is clear. There is airspace disease, likely compression atelectasis in the right lung base. This is essentially unchanged. Cardiomediastinal structures: The heart is normal in size. There is no pericardial effusion. There is no evidence of aortic aneurysm or dissection. There is no CT evidence of acute pulmonary embolic disease. There is no mediastinal or hilar adenopathy. The esophagus appears normal. Pleura : There is a large right-sided pleural effusion with partial loculation. Some of the pleural fluid appears complex consistent with an exudative process and is inseparable from multiple pleural-based masses measuring up to 2.6 cm. The pleural fluid has increased. ABDOMINAL/PELVIC FINDINGS: Liver: There is cirrhotic liver morphology. There is a cystic-appearing lesion near the dome measured 2.2 cm, unchanged. No other focal hepatic findings are noted. Gallbladder: There are scant gallstones in the neck. Spleen: The spleen is normal in size. There are no masses. Pancreas: There is no evidence of pancreatic mass or ductal dilatation. Adrenal glands: There is no evidence of adrenal mass. Kidneys: The kidneys are normal in size and position. There are prompt nephrograms and there is prompt excretion bilaterally. There is a 1.7 cm cyst in lower pole. There are several tiny nonobstructive renal calculi. Adenopathy: There is no evidence of adenopathy by size criteria. Fluid collections: There is moderate ascites. Vessels:There are atherosclerotic changes of the aorta. There is no focal aneurysm. The IVC is unremarkable GI tract: The stomach is distended. There is marked mural thickening. There is a small amount of gastric emphysema. There is a small amount of edema and proximal small bowel loops. There are no gross abnormalities the lower GI tract. There are no findings of obstruction. There is no free intraperitoneal air.. Pelvic organs: The prostate appears normal Bladder: The bladder is decompressed with Rucker catheter. Abdominal and pelvic soft tissues: The extraperitoneal abdominal and pelvic soft tissues appear normal.. Osseous structures: There is no acute bony change. There is chronic L5 spondylolysis with grade 1-2 anterolisthesis. IMPRESSION: 1. Increased right-sided pleural fluid with loculation. 2. Persistent compression atelectasis right lung base without significant change. 3. Extensive pleural studding right hemithorax consistent with metastatic disease. 4. Cirrhotic liver morphology. 5. Moderate ascites. 6. Tiny nonobstructive renal calculi. 7. Distended stomach with marked mural thickening and a small amount of gastric emphysema. 8. Chronic L5 spondylolysis.
[2018-04-06] MEDS ORDERED: Sodium Bicarbonate 8.4%* 50 ML SYRINGE ONE (12:13)
[2018-04-06] MEDS: Pantoprazole IV* 80 MG in NS 0.9% 250 ML* 250 ML IV SCH ×2 (12:20→22:26)
[2018-04-06] MEDS ORDERED: Succinylcholine* 20 MG/ML 10 ML VIAL ONE (12:25)
[2018-04-06] MEDS ORDERED: Etomidate* 2 MG/ML 20 ML VIAL (40 MG) ONE (12:30)
[2018-04-06] MEDS: Octreotide Acetate* 500 MCG in NS 0.9% 100 ML* 100 ML IVPB SCH (12:30)
[2018-04-06] MEDS ORDERED: fentaNYL PCA* 20 ML ONE (12:37)
--- NOTE | 2018-04-06 12:55 | OP ---
Operative Report - Blank - Operative Report Date of Operation: 04/06/18 Note: Endotracheal Intubation Date: 04/06/18 Time: 1230 Indication: Metabolic Acidosis Attending: Supa Linares time-out was completed verifying correct patient, procedure, site, positioning , and special equipment if applicable. The patient was placed in a flat position. Sedation was obtained with Etomidate 20mg. The patient was easily ventilated using an ambu bag. The [employer] was used and inserted into the oropharynx at which time there was a Grade 1 view of the vocal cords. A 7.5-yi endotracheal tube was inserted and visualized going through the vocal cords. The stylette was removed. Colorimetric change was visualized on the CO2 meter. Breath sounds were heard in both lung grossman equally. The endotracheal tube was placed at 23 cm, measured at the teeth. A chest x-ray was ordered to assess for pneumothorax and verify endotrachealtube placement. Estimated Blood Loss: None The patient tolerated the procedure well and there were no complications.
[2018-04-06] MEDS: Sodium Bicarbonate 8.4% IV* 150 MEQ in D5W 1000 ML BAG* 1,000 ML IVPB SCH ×2 (12:58→21:27)
[2018-04-06] MEDS ORDERED: fentaNYL PCA* 20 ML PCA SCH ×2 (13:00→16:00)
[2018-04-06] MEDS ORDERED: Norepinephrine 16MCG/ML IVPRE* 4,000 MCG/250 ML BAG IV SCH (13:00)
[2018-04-06] MEDS ORDERED: LORazepam INJ* 2 MG/ML 1 ML VIAL IV PUSH PRN ×2 (13:06→14:06)
--- NOTE | 2018-04-06 13:25 | RAD ---
HISTORY: NG placement COMPARISONS: April 06, 2018 at 9:02 AM VIEWS: 3: frontal portable view of the chest at 12:45 PM FINDINGS: LINES AND TUBES: An endotracheal tube is noted with the tip overlying the trachea between the clavicles and the ilana. A gastric tube is noted, with the tip in the left upper quadrant in a prepyloric position.. A right-sided PICC line is noted with the tip overlying the superior vena cava. CARDIOMEDIASTINAL SILHOUETTE: The cardiomediastinal silhouette is normal for portable technique. PLEURA: There is a moderate right-sided pleural effusion. LUNG PARENCHYMA: There is confluent alveolar opacification of the right lung base. ABDOMEN: The upper abdomen is clear. There is no subphrenic gas. BONES AND SOFT TISSUES: No bone or soft tissue abnormalities are noted. IMPRESSION: 1. LINES AND TUBES ABOVE. 2. RIGHT PLEURAL EFFUSION WITH RIGHT BASILAR ATELECTASIS VERSUS CONSOLIDATION
[2018-04-06] MEDS ORDERED: Midazolam* 1 MG/ML 10 ML VIAL (10 MG) ONE (13:44)
[2018-04-06] MEDS ORDERED: fentaNYL* 50 MCG/ML 2 ML VIAL (100 MCG VIAL) ONE (13:44)
[2018-04-06] MEDS: Metoclopramide IV* 5 MG/ML 2 ML VIAL IV SCH ×2 (13:49→20:34)
[2018-04-06] MEDS: Insulin LISPRO* 1 UNITS UNIT SUBCUT SCH ×2 (13:57→20:28)
[2018-04-06] MEDS ORDERED: Norepinephrine VIAL* 4 MG in NS 0.9% 250 ML* 250 ML IVPB SCH (14:00)
[2018-04-06] MEDS ORDERED: fentaNYL* 50 MCG/ML 2 ML VIAL (100 MCG VIAL) IV SLOW PU PRN (14:05)
[2018-04-06] MEDS: ZOSYN 3.375 GM Q8H per EXTENDED INFUSION IVPB SCH ×4 (15:22→22:10)
--- NOTE | 2018-04-06 16:13 | CONSULT ---
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 Orona was initially seen in consultation with Dr. Zamorano in October of 2014 for thrombocytopenia. His work-up at that time was benign beyond cirrhosis and he had PRN f/u, most recently 05/2017 with stable platelets. Unfortunately over the last several months he has experienced increasing SOB with associated wt. loss of approximately 12 lbs. (per prior H&P) and was admitted 02/14/18 with a new pleural effusion. Dr. Campbell performed a thoracentesis on 02/15/18 with pathology negative for malignant cells and he was discharge home. He presented to the ER on 03/29/18 with severe weakness and was admitted for further work-up ultimately leading to a biopsy of his right lower lobe nodularity. Initial path favored malignancy and his weakness was felt to be secondary to a paraneoplastic process (serology ultimately negative). 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 He had planned follow-up with oncology today , however over the last 48 hours has had increased SOB and presented to the ER via EMS. In the ER he was found to have progressive leukocytosis, significant anemia, and severe lactic acidosis. He was admitted to the ICU and subsequently intubated. He is currently having an EGD (in process now), has had 3 units of blood thus far, and has bicarb infusing. He is being managed by Dr. Cowart, insurance agency sales manager. Allergies/Medications Medication: Home Medications Medication Instructions Recorded Confirmed Type Pravastatin (NF) [Pravachol (NF)] 20 mg PO DAILY 02/13/14 04/06/18 History metFORMIN* [Glucophage 1000 MG TAB 1,000 mg PO BID 02/13/14 04/06/18 History *] Metoprolol Succinate XL TAB* 50 mg PO DAILY 07/22/16 04/06/18 History [Toprol XL TAB*] Ubidecarenone [Co Q-10] 200 mg PO DAILY 02/14/18 04/06/18 History Finasteride TAB* [Proscar TAB*] 5 mg PO DAILY #30 tab 04/01/18 04/06/18 Rx Tamsulosin CAP* [Flomax CAP*] 0.4 mg PO BEDTIME 3 Days #30 cap 04/01/18 Rx Active Medications Generic Name Dose Route Start Last Admin Trade Name Freq PRN Reason Stop Dose Admin Dextrose 12.5 gm 04/06/18 11:37 D50w Syringe 50 Ml* IV PUSH .FOR FS < 60 - SS PRN FS < 60 Fentanyl Citrate 50 mcg 04/06/18 14:05 Fentanyl* IV SLOW PU Q2H PRN PAIN Heparin Sodium (Porcine) 1 - 3 ml 04/06/18 18:00 Heparin Flush Picc/Ml/Cvc(*) FLUSH 0600,1800 [facility]NA[facility] Protocol Pantoprazole Sodium 80 mg/ 250 mls @ 25 mls/hr 04/06/18 10:00 04/06/18 12:20 Sodium Chloride IV 25 mls/hr Q10H [facility]NA[facility] Administration Octreotide Acetate 500 mcg/ 101 mls @ 5.05 mls/hr 04/06/18 11:30 04/06/18 12: 30 Sodium Chloride IVPB 5.05 mls/hr Q20H [facility]NA[facility] Administration 25 MCG/HR Piperacillin Sod/Tazobactam 100 mls @ 25 mls/hr 04/06/18 14:00 04/06/18 15:22 Sod 3.375 gm/ Sodium Chloride IVPB 25 mls/hr Q8H [facility] Administration Sodium Bicarbonate 150 meq/ 1,150 mls @ 150 mls/hr 04/06/18 12:30 04/06/18 12 :58 Dextrose IVPB 150 mls/hr Q7H [facility] Administration Norepinephrine Bitartrate 4 mg 250 mls @ 18.75 mls/hr 04/06/18 14:07 / Sodium Chloride IVPB Q13H [facility] Protocol 5 MCG/MIN Sodium Chloride 1,000 mls @ 1,000 mls/hr 04/06/18 15:43 Ns 0.9% 1000 Ml* IV 04/06/18 16:42 ONCE ONE Fentanyl Citrate 20 mls @ 1 mls/hr 04/06/18 16:00 Fentanyl Cartridge Maker* PAYROLL DIRECTOR .change Q24H [facility]NA[facility] Protocol 50 MCG/HR Insulin Human Lispro 0 units 04/06/18 14:00 04/06/18 13:57 Humalog* SUBCUT 6 units Q4HR [facility] Administration Protocol Lorazepam 2 mg 04/06/18 14:06 Ativan Inj* IV PUSH Q2H PRN AGITATION Metoclopramide HCl 10 mg 04/06/18 13:00 04/06/18 13:49 Reglan Iv* IV 04/07/18 05:01 10 mg Q8H [facility] Administration Pharmacy Consult 1 note 04/06/18 11:00 Zosyn Per Pharmacy* FOLLOW UP .ZOSYN PER PHARMACY [facility] Allergies/Adverse Reactions: Allergies Allergy/AdvReac Type Severity Reaction Status Date / Time gluten Allergy Unknown Verified 04/06/18 06:53 Reaction Details Sulfa (Sulfonamide Allergy as a child Verified 04/06/18 06:53 Antibiotics) History - Past Medical History Hx Diabetes: Yes - Type II Hx Hypercholesterolemia: Yes Hx Hypertension: Yes Other History: Psoriasis. BPH. Chronic Non-alcoholic liver disease. Last endoscopy 12/2017 with esophageal varies. colonoscopy 2008 with polyps - Family History Hx Family Cancer: Yes - father prostate and pancreatic, mother pancreatic - Social History Hx Alcohol Use: Yes - occassional Hx Tobacco Use: No Marital Status: Review of Systems - Review of Systems General Comments: Unable to review with pt. d/t intubation and current procedure, however review reviewed and pt. complaints include: Wt. loss, severe fatigue, and weakness SOB Urinary retention Constitutional Symptoms: Positive: Weight Loss Pulmonary: Positive: Respiratory Distress, Shortness of Breath Gastroenterology: Positive: Melena Musculoskeletal: Positive: Other - severe weakness Hematologic/Lymphatic: Positive: Anemia, Other - leukocytosis Neurology: Positive: Other - severe weakness Physical Exam - Physical Exam Physical Examination: Pt. currently sedated for intubation with stable VS - please see EMR for full record. Complete exam not possible due to on-going procedure - please see insurance agency sales manager report for full physical Results - Lab Results Lab Results: 04/06/18 04/06/18 04/06/18 08:04 08:25 08:26 WBC 64.1 H RBC 2.46 L Hgb 6.6 L Hct 22 L MCV 88 MCH 27 MCHC 30 L RDW 17 H Plt Count 310 MPV 9.6 Neut % (Auto) 88.3 H Lymph % (Auto) 6.0 L Morgan % (Auto) 4.8 Eos % (Auto) 0.1 Baso % (Auto) 0.8 Absolute Neuts (auto) 56.6 H Absolute Lymphs (auto) 3.8 Absolute Monos (auto) 3.0 H Absolute Eos (auto) 0.1 Absolute Basos (auto) 0.5 H Absolute Nucleated RBC 0 Nucleated RBC % 0 Hem Pathologist Commnt INR (Anticoag Therapy) APTT Patient Temperature ABG pH ABG pH (Temp Correct) ABG pCO2 ABG pCO2 (Temp Corrct ABG pO2 ABG pO2 (Temp Correct ABG HCO3 ABG O2 Saturation ABG Base Excess Respiration Rate O2 Delivery Device Ventilator Type Vent Mode FiO2 Inspiratory Time PEEP Pressure Support Pressure Control EPAP IPAP BiPAP Sodium Potassium Chloride Carbon Dioxide Anion Gap BUN Creatinine Est GFR ( Amer) Est GFR (Non-Af Amer) BUN/Creatinine Ratio Glucose POC Glucose (mg/dL) Lactic Acid Calcium Total Bilirubin AST ALT Alkaline Phosphatase Total Creatine Kinase Troponin I C-Reactive Protein B-Natriuretic Peptide Total Protein Albumin Globulin Albumin/Globulin Ratio Urine Color Yellow Urine Appearance Clear Urine pH 5.0 Ur Specific [place] 1.023 Urine Protein Negative Urine Ketones 1+ A Urine Blood 3+ A Urine Nitrate Negative Urine Bilirubin Negative Urine Urobilinogen Negative Ur Leukocyte Esterase 1+ A Urine WBC (Auto) 2+(11-20/hpf) A Urine RBC (Auto) 3+(>10/hpf) A Urine Bacteria Absent Hyaline Casts Present A Urine Glucose 1+(50 mg/dl) A Urine Ascorbic Acid * A Blood Type O Negative Antibody Screen Negative Crossmatch See Detail 04/06/18 04/06/18 04/06/18 08:26 08:26 08:26 WBC RBC Hgb Hct MCV MCH MCHC RDW Plt Count MPV Neut % (Auto) Lymph % (Auto) Morgan % (Auto) Eos % (Auto) Baso % (Auto) Absolute Neuts (auto) Absolute Lymphs (auto) Absolute Monos (auto) Absolute Eos (auto) Absolute Basos (auto) Absolute Nucleated RBC Nucleated RBC % Hem Pathologist Commnt INR (Anticoag Therapy) 1.46 H APTT 29.9 Patient Temperature ABG pH ABG pH (Temp Correct) ABG pCO2 ABG pCO2 (Temp Corrct ABG pO2 ABG pO2 (Temp Correct ABG HCO3 ABG O2 Saturation ABG Base Excess Respiration Rate O2 Delivery Device Ventilator Type Vent Mode FiO2 Inspiratory Time PEEP Pressure Support Pressure Control EPAP IPAP BiPAP Sodium 135 Potassium 5.7 H Chloride 100 L Carbon Dioxide 10 L* Anion Gap 25 H BUN 35 H Creatinine 0.92 Est GFR ( Amer) 97.6 Est GFR (Non-Af Amer) 80.6 BUN/Creatinine Ratio 38.0 H Glucose 280 H POC Glucose (mg/dL) Lactic Acid 16.0 H* Calcium 8.8 Total Bilirubin 0.60 AST 14 ALT 17 Alkaline Phosphatase 116 H Total Creatine Kinase 25 Troponin I 0.02 C-Reactive Protein 165.96 H B-Natriuretic Peptide Total Protein 5.1 L Albumin 2.1 L Globulin 3.0 Albumin/Globulin Ratio 0.7 L Urine Color Urine Appearance Urine pH Ur Specific [place] Urine Protein Urine Ketones Urine Blood Urine Nitrate Urine Bilirubin Urine Urobilinogen Ur Leukocyte Esterase Urine WBC (Auto) Urine RBC (Auto) Urine Bacteria Hyaline Casts Urine Glucose Urine Ascorbic Acid Blood Type Antibody Screen Crossmatch 04/06/18 04/06/18 04/06/18 08:26 11:59 13:04 WBC RBC Hgb Hct MCV MCH MCHC RDW Plt Count MPV Neut % (Auto) Lymph % (Auto) Morgan % (Auto) Eos % (Auto) Baso % (Auto) Absolute Neuts (auto) Absolute Lymphs (auto) Absolute Monos (auto) Absolute Eos (auto) Absolute Basos (auto) Absolute Nucleated RBC Nucleated RBC % Hem Pathologist Commnt INR (Anticoag Therapy) APTT Patient Temperature Not Reportable Not Reportable ABG pH < 7.00 L* < 7.00 L* ABG pH (Temp Correct) Not Reportable Not Reportable ABG pCO2 24 L 31 L ABG pCO2 (Temp Corrct Not Reportable Not Reportable ABG pO2 117 H 310 H ABG pO2 (Temp Correct Not Reportable Not Reportable ABG HCO3 4.0 L* 5.9 L* ABG O2 Saturation 99.9 H 101.6 H ABG Base Excess -26.9 L -24.4 L Respiration Rate Not Reportable 22 O2 Delivery Device nc vent Ventilator Type Not Reportable 450 Vent Mode Not Reportable Not Reportable FiO2 32 100 Inspiratory Time Not Reportable Not Reportable PEEP Not Reportable 5 Pressure Support Not Reportable Not Reportable Pressure Control Not Reportable Not Reportable EPAP Not Reportable Not Reportable IPAP Not Reportable Not Reportable BiPAP Not Reportable Not Reportable Sodium Potassium Chloride Carbon Dioxide Anion Gap BUN Creatinine Est GFR ( Amer) Est GFR (Non-Af Amer) BUN/Creatinine Ratio Glucose POC Glucose (mg/dL) Lactic Acid Calcium Total Bilirubin AST ALT Alkaline Phosphatase Total Creatine Kinase Troponin I C-Reactive Protein B-Natriuretic Peptide 116 H Total Protein Albumin Globulin Albumin/Globulin Ratio Urine Color Urine Appearance Urine pH Ur Specific [place] Urine Protein Urine Ketones Urine Blood Urine Nitrate Urine Bilirubin Urine Urobilinogen Ur Leukocyte Esterase Urine WBC (Auto) Urine RBC (Auto) Urine Bacteria Hyaline Casts Urine Glucose Urine Ascorbic Acid Blood Type Antibody Screen Crossmatch 04/06/18 13:49 WBC RBC Hgb Hct MCV MCH MCHC RDW Plt Count MPV Neut % (Auto) Lymph % (Auto) Morgan % (Auto) Eos % (Auto) Baso % (Auto) Absolute Neuts (auto) Absolute Lymphs (auto) Absolute Monos (auto) Absolute Eos (auto) Absolute Basos (auto) Absolute Nucleated RBC Nucleated RBC % Hem Pathologist Commnt INR (Anticoag Therapy) APTT Patient Temperature ABG pH ABG pH (Temp Correct) ABG pCO2 ABG pCO2 (Temp Corrct ABG pO2 ABG pO2 (Temp Correct ABG HCO3 ABG O2 Saturation ABG Base Excess Respiration Rate O2 Delivery Device Ventilator Type Vent Mode FiO2 Inspiratory Time PEEP Pressure Support Pressure Control EPAP IPAP BiPAP Sodium Potassium Chloride Carbon Dioxide Anion Gap BUN Creatinine Est GFR ( Amer) Est GFR (Non-Af Amer) BUN/Creatinine Ratio Glucose POC Glucose (mg/dL) 273 H Lactic Acid Calcium Total Bilirubin AST ALT Alkaline Phosphatase Total Creatine Kinase Troponin I C-Reactive Protein B-Natriuretic Peptide Total Protein Albumin Globulin Albumin/Globulin Ratio Urine Color Urine Appearance Urine pH Ur Specific [place] Urine Protein Urine Ketones Urine Blood Urine Nitrate Urine Bilirubin Urine Urobilinogen Ur Leukocyte Esterase Urine WBC (Auto) Urine RBC (Auto) Urine Bacteria Hyaline Casts Urine Glucose Urine Ascorbic Acid Blood Type Antibody Screen Crossmatch Laboratory Tests 03/31/18 05:47 Paraneoplastic Ab Intrp See comment Neuronal Nuc Ab Type 1 Negative Neuronal Nuc Ab Type 2 Negative Neuronal Nuc Ab Type 3 Negative AGNA-1 Negative AChR Muscle Binding Ab See comment AChR Ganglion Neuronal 0.00 Purkinje Cell (PAYROLL DIRECTOR-1) Negative Purkinje Cell (PAYROLL DIRECTOR-2) Negative Purkinje Cytoplas Typ Tr Negative CRMP-5 IgG Antibody Negative Amphiphysin Antibody Negative Ca Channel Bind Ab - N 0.00 Ca Channel Bind Ab P/Q 0.00 [place] K Channel Ab 0.00 Striated Muscle Ab Negative Laboratory Tests 07/11/18 05:42 Prostate Specific Ag 4.664 H - Radiology Radiology Results: CXR with Right pleural effusion and associated consolidation CT C/A/P with Right pleural effusion /c studding, moderate ascites, thickening of gastrum: negative for obvious lesions in the liver and kidneys Prior admission with negative brain MRI, Lumbar sacral MRI negative for metastatic lesions, liver US with cirrhosis Assessment and Plan Impression: 72 yo male admitted with severe lactic acidosis likely related to massive GI bleed with prognosis currently guarded. In terms of his newly diagnosed metastatic cancer of unknown primary it is difficult to ascertain his prognosis until further testing reveals a primary, however, if he is able to recover from this acute insult any treatments for his cancer would ultimately be palliative. I discussed Mr. Orona's condition with his family at length and reviewed our current understanding of his pathology which favors a renal primary without known primary tumor, however, I was very hesitant to offer any prognosis related to this as I feel it to be purely speculative and his status is currently driven by a severe GI bleed. Plan: As per insurance agency sales manager - case discussed with Dr. Cowart >60 min spent reviewing pt. chart and discussing case with family
[2018-04-06] MEDS: Norepinephrine VIAL* 4 MG in NS 0.9% 250 ML* 246 ML IVPB SCH ×2 (16:45→22:29)
--- NOTE | 2018-04-06 17:36 | RAD ---
INDICATION: Intubation. Evaluate for free air. COMPARISON: Chest x-ray April 06, 2018; CT chest/abdomen/pelvis April 06, 2018 TECHNIQUE: An AP portable view obtained at 1707 hours is submitted. FINDINGS: Bones/Soft Tissues: There is no acute bony change. There is an endotracheal tube 5 cm above the ilana. Cardiomediastinal: The heart is normal in size. Lungs: There is right basilar airspace disease. Pleura: There is right-sided effusion as well documented on recent CT imaging.. Other: There is no subdiaphragmatic free air. The stomach is distended. Please refer to proceeding CT of the chest/abdomen/pelvis IMPRESSION: THE ENDOTRACHEAL TUBE IS IN SATISFACTORY POSITION RIGHT-SIDED EFFUSION/AIRSPACE DISEASE.
[2018-04-06 17:38] LABS: Hematocrit 31 % (42-52); Hemoglobin 9.6 g/dl (14.0-18.0); Mean Corpuscular HGB Conc 31 g/dl (31-36); Mean Corpuscular Hemoglobin 29 pg (27-31); Mean Corpuscular Volume 93 fL (80-94); Mean Platelet Volume 9.6 um3 (7.4-10.4); Platelet Count 216 10^3/ul (150-450); Red Blood Count 3.37 10^6/ul (4.00-5.40); Red Cell Distribution Width 17 % (10.5-15); White Blood Count 67.4 10^3/ul (3.5-10.8)
[2018-04-06 17:56] LABS: EGFR Non-African American 64.3 (>60)
[2018-04-06 18:16] LABS: ABS Basophils 0 10^3/ul (0-0.2); ABS Eosinophils 0.4 10^3/ul (0-0.6); ABS Monocytes 3.3 10^3/ul (0-0.8); ABS Neutrophils 60.6 10^3/ul (1.5-7.7)
--- NOTE | 2018-04-06 18:17 | ECHO ---
Patient: RUPA PAREKH [facility] Rec#: [id number] : 1945 Date: 04/06/2018 Age: 72y Height: 177.8 cm / 70.0 in Weight: 85.28 kg / 188.0 lbs Sex: M BSA: 2.03 Room#: -7 Admit Date#: 04/06/2018 Type: Inpatient Referring: Nohelia Pulido Reading: Lali Mcgee MD Family Day Care Provider: Chaparrita Taylor BRIGITTE CC: Leonel Light MD CC: Jaun JOHNS,Malu Hurd Transthoracic Echocardiogram Indication: SOB BP: 145/62 HR: 127 Rhythm: Tachycardia Findings History: New diagnosis lung cancer,DM,HLD,HTN. Technical Comments: The study quality is fair. Patient was dyspnic and diaphoretic. Unable to lay in left lateral position.. Completed at 1010. Left Ventricle: The left ventricular chamber size is decreased. Mild concentric left ventricular hypertrophy is observed. The left ventricle appears hyperdynamic. The estimated ejection fraction is greater than 65%. There is an E to A reversal in the mitral valve flow pattern suggestive of diastolic dysfunction. Left Atrium: The left atrial chamber size is normal. Right Ventricle: The right ventricular cavity size is normal. The right ventricular global systolic function is hyperdynamic. Right Atrium: The right atrial cavity size is normal. Aortic Valve: The aortic valve is trileaflet. There is mild thickening of the non coronary cusp. There is no evidence of aortic regurgitation. There is no evidence of aortic stenosis. Mitral Valve: The mitral valve leaflets are mildly thickened. There is no evidence of mitral regurgitation. There is no evidence of mitral stenosis. Tricuspid Valve: The tricuspid valve leaflets are normal. There is mild to moderate tricuspid regurgitation.difficult to estimate. The right ventricular systolic pressure is estimated at 48 mmHg. There is evidence of moderate pulmonary hypertension. There is no tricuspid stenosis. Pulmonic Valve: The pulmonic valve appears normal. There is no evidence of pulmonic regurgitation. There is no pulmonic stenosis. Pericardium: There is no pericardial effusion. Aorta: There is no dilatation of the ascending aorta. There is no dilatation of the aortic arch. There is no dilation of the aortic root. Pulmonary Artery: The main pulmonary artery appears normal. Venous: The venous system is not well visualized. Conclusions The study quality is fair. Patient was dyspnic and diaphoretic and tachycardic. Unable to lay in left lateral position. Small left ventricular cavity diameter. Mild concentric left ventricular hypertrophy is observed. The left ventricle appears hyperdynamic. The estimated ejection fraction is greater than 65%. Abnormal diastolic filling noted. The right ventricular global systolic function is hyperdynamic. There is mild to moderate tricuspid regurgitation.difficult to estimate. There is evidence of moderate pulmonary hypertension estimated at 48 mmHg. Compared with prior echo of 02/15/18, small chamber diameter seen previously, hyperdynamic function is new, TR is new and elevated PA pressure new. Measurements Name Value Normal Range RVIDd (AP) 2D 2.2 cm (0.9 - 2.6) RAd ISD 4CH 3.9 cm (3.4 - 4.9) RA (A4C)W 3.2 cm (2.9 - 4.6) IVSd (2D) 1.1 cm (0.6 - 1) LVPWd (2D) 1.1 cm (0.6 - 1) LVIDd (2D) 2.2 cm (3.6 - 5.4) LVIDs (2D) 1 cm - LV FS (2D) 53 % (25 - 45) Aortic Annulus 1.8 cm (1.4 - 2.6) Ao root diameter (2D) 2.3 cm (2.1 - 3.5) Ascending Ao 2.8 cm (2.1 - 3.4) Aortic arch 2.5 cm (1.8 - 3.4) Descending Ao 0.8 cm - LA dimension (AP) 2D 2.6 cm (2.3 - 3.8) LAd ISD 4CH 4.3 cm (2.9 - 5.3) LA ISD 4CH W 2.6 cm (2.5 - 4.5) Name Value Normal Range LA ESV SP 4CH (A/L) 21 ml - LA ESV SP 2CH (A/L) 27 ml - LA ESV BP (A/L) 24 ml - LA ESV BP (A/L) index 11.7 ml/m2 - LA ESV SP 4CH (MOD) 19 ml - LA ESV SP 2CH (MOD) 26 ml - Name Value Normal Range MV E-wave Vmax 0.5 m/sec - MV deceleration time 175 msec - MV A-wave Vmax 0.8 m/sec - MV E:A ratio 0.68 ratio - LV septal e' Vmax 0.07 m/sec - LV lateral e' Vmax 0.07 m/sec - LV E:e' septal ratio 7.14 ratio - LV E:e' lateral ratio 7.14 ratio - Name Value Normal Range AV Vmax 2.8 m/sec - AV VTI 32.45 cm - AV peak gradient 31.5 mmHg - AV mean gradient 16.42 mmHg - LVOT Vmax 2.5 m/sec - LVOT VTI 32.9 cm - LVOT peak gradient 26.52 mmHg - LVOT mean gradient 13.39 mmHg - Name Value Normal Range TR Vmax 3.2 m/sec - TR peak gradient 40 mmHg - RAP 8 mmHg - RVSP 48 mmHg - Name Value Normal Range PV Vmax 1.9 m/sec - PV peak gradient 14.71 mmHg -
--- NOTE | 2018-04-06 18:18 | RAD ---
INDICATION: Evaluate for free air. EGD. EGD with varix clipping COMPARISON: CT chest/abdomen/pelvis earlier today TECHNIQUE: Noncontrast axial source images were acquired from the level hemidiaphragms to the symphysis pubis. Lung bases: The left lung is clear. There is airspace disease in right lung base. Liver: Noncontrast imaging liver again shows a cyst near the dome is otherwise unchanged. There is cirrhotic liver morphology. Gallbladder: The gallbladder is now contracted. Spleen: The spleen is normal in size. The noncontrast CT appearance is normal. Pancreas: Noncontrast imaging shows no pancreatic mass or ductal dilitation. Adrenal glands: No masses are identified. Kidneys/Bladder: No interval changes. Left renal cyst. Tiny nonobstructive renal calculi better evaluated on the earlier exam. Adenopathy: There is no gross evidence of intraperitoneal or retroperitoneal adenopathy. Evaluation is limited without oral contrast. Fluid collections: Persistent moderate ascites. Vessels: There are atherosclerotic changes of the aorta and iliac vessels. There is no focal aneurysm. The IVC appears normal Pelvic organs: Normal prostate GI tract: There is perhaps slightly increased distention of the stomach. There is again marked mural thickening with a small amount of gastric emphysema. The remainder of the bowel is likewise unchanged with a small amount of mucosal edema involving the small bowel. Soft tissues: No soft tissue abnormalities of the extraperitoneal abdomen or pelvis are identified. Osseous structures: There are no acute osseous findings. There is chronic L5 spondylolysis with a grade 1-2 anterolisthesis. IMPRESSION: 1. Noncontrast imaging was performed and compared to the examination from earlier today. Overall there is no significant interval change. 2. Pleural and parenchymal changes in right chest are unchanged. There is loculated right-sided pleural effusion fluid with airspace disease right lung base and pleural studding. 3. Cirrhotic liver morphology with hepatic cyst. 4. Moderate ascites, unchanged. 5. Distended stomach with real thickening of small amount of gastric emphysema, unchanged. No free air.
[2018-04-06 18:30] LABS: ABS Basophils 0 10^3/ul (0-0.2); ABS Neutrophils 47.9 10^3/ul (1.5-7.7); Monocytes % 5 % (0-7)
--- NOTE | 2018-04-06 18:45 | PN ---
Progress Note - Progress Note Date of Service: 04/06/18 Note: Critical Care Follow Up EGG performed by GI. Varix banded x 1. Post procedure patient markedly distended. There was concern for perforation. Stat CT scan ordered which did not show any perforation. Likely large amount of air insufflated during the procedure. OG tube replaced for decompression. Bladder pressure monitor placed to evaluate for abdominal compartment syndrome. Repeat labs shows improvement of hgb from 6 to 9 after transfusion of 5 units of prbcs. Lactic acid remains markedly elevated at 17. BP now dropping and levophed started. Discussion held with the patients brother and at bedside. The expressed that the patient would not want to pursue dialysis for the the patients acidosis and it would also be unlikely that he would tolerate it with his low blood pressure. They agreed to continue current management and if the patient survives overnight we would re-assess in the AM. Additional Critical Care Time 45 minutes. Total time for the day 125 mins.
[2018-04-06] MEDS ORDERED: Vasopressin* 100 UNITS in D5W 250 ML BAG* 245 ML IVPB SCH (19:30)
[2018-04-06] MEDS: Chlorhexidine MOUTHWASH 0.12%* 15 ML UDC TOPICAL SCH (22:12)
[2018-04-06 22:19] LABS: Hematocrit 38 % (42-52); Hemoglobin 12.2 g/dl (14.0-18.0); Mean Corpuscular HGB Conc 32 g/dl (31-36); Mean Corpuscular Hemoglobin 28 pg (27-31); Mean Corpuscular Volume 89 fL (80-94); Mean Platelet Volume 9.6 um3 (7.4-10.4); Platelet Count 233 10^3/ul (150-450); Red Blood Count 4.32 10^6/ul (4.00-5.40); Red Cell Distribution Width 16 % (10.5-15); White Blood Count 69.7 10^3/ul (3.5-10.8)
[2018-04-06 22:32] LABS: EGFR Non-African American 47.3 (>60)
[2018-04-06 22:50] LABS: ABS Basophils 0.6 10^3/ul (0-0.2); ABS Eosinophils 0 10^3/ul (0-0.6); ABS Lymphocytes 2.3 10^3/ul (1.0-4.8); ABS Monocytes 2.9 10^3/ul (0-0.8); ABS Neutrophils 63.8 10^3/ul (1.5-7.7); ABS Nucleated RBC 0.2 10^3/ul
[2018-04-06 22:56] LABS: ABS Basophils 0 10^3/ul (0-0.2); ABS Neutrophils 46.7 10^3/ul (1.5-7.7); Monocytes % 1 % (0-7)
[2018-04-07] MEDS: Insulin LISPRO* 1 UNITS UNIT SUBCUT SCH ×3 (00:32→09:40)
[2018-04-07] MEDS ORDERED: CALCIUM CHLORIDE IV ONE (01:00)
[2018-04-07] MEDS ORDERED: Insulin REGULAR(*) IIP for Adult Hyperglycemia (2017) IVPB SCH (01:00)
[2018-04-07] MEDS ORDERED: D5W IV ONE (01:00)
[2018-04-07] MEDS: Chlorhexidine MOUTHWASH 0.12%* 15 ML UDC TOPICAL SCH ×3 (01:57→09:37)
--- NOTE | 2018-04-07 02:28 | CONS ---
CC: Dr. Cowart; Nicki Fountain NP; Amelia Wolf DO * GASTROENTEROLOGY CONSULTATION REPORT: DATE OF CONSULT: 04/06/18 HOSPITAL PROVIDER: Venu Cowart DO REASON FOR CONSULTATION: Melena, anemia. HISTORY OF PRESENT ILLNESS: Mr. Orona is a 72-year-old gentleman with a history of hypertension, diabetes, cirrhosis with recent banding of esophageal varices in December 2017 and recent diagnosis of sarcomatoid carcinoma of unknown primary, who presented with weakness and was noted to have severe lactic acidosis and a hemoglobin of 6.6. He was noted to have WBC count of 64.1, for which empiric antibiotics were initiated. In the ER, he was noted to have a melenic bowel movement. The patient was transferred to the intensive care unit where he had moderate respiratory distress. Decision was made to intubate him with possible sepsis protocol. OGT was inserted post-intubation and was noted to have bright red blood. He was also started on a Protonix drip and octreotide drip for possible upper gastrointestinal bleeding from varices versus gastric ulcer. Gastroenterology was consulted for emergent upper endoscopy. PAST MEDICAL HISTORY: 1. Hypertension. 2. Diabetes mellitus. 3. Hyperlipidemia. 4. Cirrhosis complicated by esophageal varices. 5. 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 PAST SURGICAL HISTORY: 1. Recent lung mass biopsy. 2. Endoscopy with variceal banding on 12/20/17. 3. Colonoscopy in 2008. MEDICATIONS: Hospital medications: 1. Insulin sliding scale. 2. Ativan. 3. Fentanyl. 4. Octreotide drip. 5. Protonix drip. 6. Zosyn. ALLERGIES: To GLUT[place] and [place] FAMILY HISTORY: Father with prostate and pancreatic cancer. Mother with pancreatic cancer. SOCIAL HISTORY: No history of alcohol use. He is currently . REVIEW OF SYSTEMS: Review of systems has been unable to be reviewed as the patient is currently sedated on fentanyl and Ativan and intubated. PHYSICAL EXAM: Vital Signs: Temperature 92.8, pulse 109, respirations 31, oxygenation 96% on ventilator, blood pressure 91/53. Generally, the patient is currently sedated on Ativan and fentanyl and intubated. OG tube and ET tube are in place. HEENT: Anicteric sclerae bilaterally. Dry mucous membranes. Cardiovascular Exam: Slightly tachycardic, regular rhythm. Pulmonary Exam: Decreased breath sounds bilaterally in the bases. No wheezes or rhonchi. Abdomen: Sluggish bowel sounds, slightly firm. No rebound, guarding, or rigidity. Extremities: No clubbing, cyanosis, or edema. Neurological Exam: Unable to assess. ASSESSMENT AND PLAN: Mr. Orona is a 72-year-old gentleman with a past medical history of hypertension, diabetes type 2, cirrhosis complicated by esophageal varices, recently banded in December 2017, psoriasis, who presented to [facility] ER with progressive weakness. He was noted to be severely acidotic in the emergency room as well as having a hemoglobin of 6.6. He was also noted to have an episode of melanic bowel movement. He was transferred to the ICU for moderate respiratory distress as well as possible GI bleed. While in the intensive care unit, decision was made to intubate him due to respiratory distress. He is currently on Ativan and fentanyl drip. Gastroenterology was consulted for emergent endoscopy. OG tube was noted to have bright red bloody output. The possibility of an esophageal variceal bleed is highly likely due to his previous history of esophageal varices and current presentation. It could also consider a gastric ulcer, although his stomach and duodenum were fairly normal-appearing back in December 2017 and there is no current NSAID use. We will perform an emergent endoscopy for possible variceal bleed with possible banding ligation at bedside. He is currently receiving his 5th unit of packed red blood cells. Levophed drip is on standby as his blood pressure remains labile. There continues to be bright red blood output from orogastric tube, which is currently to suction. Case was discussed with the patient's brother at bedside, who is a general surgeon. He does agree to performing an upper endoscopy emergently. Patient's has signed consent. Further recommendations will be provided as the patient's clinical course progresses. Thank you, Dr. Cowart, for allowing us to participate in the care of your patient. If you should have any further questions or concerns, please do not hesitate to contact us. [id number]/[facility] #: [id number] YENNI
[2018-04-07] MEDS: Sodium Bicarbonate 8.4% IV* 150 MEQ in D5W 1000 ML BAG* 1,000 ML IVPB SCH (03:09)
[2018-04-07] MEDS: Metoclopramide IV* 5 MG/ML 2 ML VIAL IV SCH (04:30)
[2018-04-07 04:37] LABS: Hematocrit 38 % (42-52); Hemoglobin 12.6 g/dl (14.0-18.0); Mean Corpuscular HGB Conc 34 g/dl (31-36); Mean Corpuscular Hemoglobin 29 pg (27-31); Mean Corpuscular Volume 86 fL (80-94); Mean Platelet Volume 9.2 um3 (7.4-10.4); Platelet Count 134 10^3/ul (150-450); Red Blood Count 4.39 10^6/ul (4.00-5.40); Red Cell Distribution Width 16 % (10.5-15); White Blood Count 42.2 10^3/ul (3.5-10.8)
[2018-04-07 04:46] LABS: INR 1.45 (0.77-1.02)
--- NOTE | 2018-04-07 04:48 | PRO ---
CC: Dr. Light; Dr. Cowart * GASTROENTEROLOGY OPERATIVE REPORT: DATE OF PROCEDURE: 04/06/18 OPERATIVE PROCEDURE: Esophagogastroduodenoscopy to the second portion of duodenum with banding. FORGE HELPER: Amelia Wolf DO. ANESTHESIA: 1. Midazolam 4 mg IV. 2. Fentanyl 75 mcg IV. HISTORY OF PRESENT ILLNESS: Mr. Orona is a 72-year-old gentleman, who has been newly diagnosed with poorly differentiated sarcomatoid carcinoma with unknown primary, who presented with shortness of breath, severe weakness, and fatigue. He was noted to be acidotic with hemoglobin of 6.6 and was observed to have a melenic bowel movement in the emergency room. He was in moderate respiratory distress and was placed on BiPAP as needed. He was transferred to the intensive care unit for further evaluation and care. He was subsequently intubated due to respiratory distress and currently on Fentanyl and Ativan drips. An OGT was inserted in the ICU post-intubation and revealed bright red blood. Patient has a history of cirrhosis with newly banded two column of varices during endoscopy by Dr. Montoya on 12/20/17. He was due for a followup in 6 months. Since then, he has been currently being seen by Hematology/ Oncology Services for this newly diagnosed sarcomatoid carcinoma. Gastroenterology was consulted for emergent evaluation for upper GI bleed due to possible variceal bleed. PREOPERATIVE DIAGNOSES: 1. Acute blood loss anemia. 2. Melena. 3. Bright red blood in OGT. 4. Cirrhosis, complicated by esophageal varices with recent banding in December 2017. POSTOPERATIVE DIAGNOSES: 1. Significant amounts of old blood and blood clots throughout the gastric lumen, duodenum and entire esophagus. 2. Aggressive irrigation and suctioning was performed and removal of blood clots via alfonso nets in order to adequately visualized the mucosa. 3. Recently bled distal esophageal varix with red angie sign status post one band placement. 4. No bright red blood or active bleeding seen on endoscopy at this time. Bleeding appears to have subsided. 5. Poor visualization of the duodenum and stomach due to significant amount of blood clots. RECOMMENDATIONS: 1. We will obtain a chest x-ray due to increased abdominal distention to rule out perforation. 2. Continue Protonix drip and octreotide drip. Levophed is on standby. 3. Will continue to give Reglan, a motility agent, to clear out upper GI tract in case an emergent endoscopy is needed in the near future in order to improve visualization. If patient's condition improves and stabilizes, he will need a repeat endoscopy prior to discharge in order have a complete examination of his stomach and duodenum and rule out other causes of GI bleeding. 4. Continue to monitor the patient's hemoglobin and transfuse packed red blood cells as necessary. 5. Maintain n.p.o. status. 6. Results discussed with family at bedside and Dr. Cowart, rehab assistant. DESCRIPTION OF PROCEDURE: Esophagogastroduodenoscopy was explained in detail to the patient, and brother at bedside. All questions were answered. The patient's demonstrated understanding of the conversation. Informed consent was obtained by patient's . Next, the patient remained in the intensive care unit. The travel endoscopy cart was brought to the intensive care unit. Blood pressure, cardiac, and oxygen monitors were already applied. The patient was found to be a fit candidate for moderate anesthesia. He was recently intubated and currently on an Ativan and fentanyl drip. After adequate IV sedation was achieved, a bite-block was placed. Next, a standard adult Olympus endoscope was inserted per os, through the upper esophageal sphincter, into the esophagus where significant amount of blood clots and old blood were noted. An OG tube was also present. The endoscope was slowly and carefully maneuvered to the distal portion of the esophagus and the gastric lumen was entered revealing significant amount of blood clots encompassing approximately two-thirds of the stomach. Aggressive irrigation and suctioning was performed in order to adequately visualize the mucosa, although it was difficult due to significant blood clots. Slowly the endoscope was maneuvered to locate the pylorus. The duodenum was intubated and large amount of blood clots were seen. There was no active bleeding visualized in this area. I was able to maneuver up to approximately to second portion of the duodenum. The endoscope was then further withdrawn into the distal esophagus where the patient has known history of recent banding of esophageal varices. The blood clots were removed one by one by a Alfonso Net in order to visualize the mucosa. There was one varix with multiple red angie signs indicative of recent variceal bleed. One band was placed at this site with mild bleeding and hemostasis. Air was then removed from the patient. Endoscope was removed from the patient. The patient tolerated the procedure well overall. After a period of observation, the patient remained in the intensive care unit. He did develop some abdominal distention post procedure. Stat chest x-ray was ordered to rule out a perforation and was negative for perforation. A subsequent CT of the abdomen and pelvis was also ordered to confirm this and was negative for perforation as well. The patient remained in the intensive care unit for further evaluation and critical care treatment. Thank you, Dr. Cowart, for allowing us to participate in the care of your patient. If you should have any further questions or concerns, please do not hesitate to contact us. [id number]/[facility] #: [id number] YENNI
[2018-04-07 05:04] LABS: ABS Neutrophils 38.5 10^3/ul (1.5-7.7)
[2018-04-07] MEDS: ZOSYN 3.375 GM Q8H per EXTENDED INFUSION IVPB SCH ×2 (05:30)
[2018-04-07] MEDS: Norepinephrine VIAL* 4 MG in NS 0.9% 250 ML* 246 ML IVPB SCH (05:52)
[2018-04-07] MEDS ORDERED: Insulin REGULAR(*) 1 UNITS UNIT IV PUSH ONE (07:10)
[2018-04-07] MEDS ORDERED: Magnesium Sulfate 1 GM IV* 1 GM/100 ML BAG IV ONE (08:00)
--- NOTE | 2018-04-07 08:13 | PN ---
Progress Note - Progress Note Date of Service: 04/07/18 Note: Discussed with family at bedside. They state that the patient would not have wanted aggressive interventions and he would wish to be made comfort care. They asked for a terminal extubation. Comort care order set placed. Terminal extubation ordered. Family requests autopsy.
[2018-04-07] MEDS ORDERED: Morphine PCA ADULT* 5 MG/ML 30 ML ONE (08:14)
--- NOTE | 2018-04-07 08:35 | DS ---
Patient Name: Jose Alberto Orona Admission Date: 04/06/18 Discharge Date: 04/07/18 Attending Physician: Supa Primary Care Physician: Leonel Light Referring Physician: ER Consulting Physician(s): Luciano (GI)Jaun (Onc) Condition on Discharge: Final Diagnosis: Cirrhosis (Acute) Esophageal varices with bleeding (Acute) I85.01 GI (gastrointestinal bleed) (Acute) K92.2 HTN (hypertension) (Acute) I10 Metabolic acidosis (Acute) E87.2 Neoplasm of lung (Acute) D49.1 Respiratory failure (Acute) J96.90 Sepsis (Acute) Shock (Acute) R57.9 Type II diabetes mellitus (Acute) Urinary tract infection (Acute) Procedures: CT Chest/Abd/Pel with contrast 04/06/18 IMPRESSION: 1. Increased right-sided pleural fluid with loculation. 2. Persistent compression atelectasis right lung base without significant change. 3. Extensive pleural studding right hemithorax consistent with metastatic disease. 4. Cirrhotic liver morphology. 5. Moderate ascites. 6. Tiny nonobstructive renal calculi. 7. Distended stomach with marked mural thickening and a small amount of gastric emphysema. 8. Chronic L5 spondylolysis. TTE 04/06/18 Conclusion: Moderate concentric LVH Hyperdynamic LV EF > 65% Abnormal diastolic filling Mild to Moderate Tricuspid Regurg Estimated moderate pulm htn 48 CT abd/pel without contrast 04/06/18 IMPRESSION: 1. Noncontrast imaging was performed and compared to the examination from earlier today. Overall there is no significant interval change. 2. Pleural and parenchymal changes in right chest are unchanged. There is loculated right-sided pleural effusion fluid with airspace disease right lung base and pleural studding. 3. Cirrhotic liver morphology with hepatic cyst. 4. Moderate ascites, unchanged. 5. Distended stomach with real thickening of small amount of gastric emphysema, unchanged. No free air. Endotracheal Intubation: 04/06/18 PICC Line Placement: 04/06/18 History of Present Illness: 72M with htn, hld, dm, cirrhosis, recent admission for weakness presents with shortness of breath. The patient states that his has been going on for the past 48 hours. It became progressively worse. He also notes black tarry bowel movements. In the ER he was noted to have a hgb of 6, wbc was 64, bicarb was 10 , and his lactate was 16. The patient was started on iv fluids. Transfusion was ordered. GI and Oncology were consulted in the ER. Of note, the patient was admitted for weakness on the 29 of March which was thought to be possible paraneoplastic syndrome 2/2 to a lung mass and associated pleural effusion. The lung mass was biopsied, however, he was discharged prior to availablility of the results. 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 During that admission the patient also had urinary retention and was discharged with a mcpherson in place. Laboratory/Data: Initial Lab work: Hgb 6, WBC 67, Lactate 16, ph < 7.0 Hospital Course: The patient was admitted to the ICU. He was intubated for severe metabolic acidosis. GI performed an EGD at bedside. There was large amount of clots and old blood in the stomach. A large esophageal varix was banded. He was transfused 7 units of blood and his hgb increased to 12. He was started on levophed and vasopression for hypotension. He was started on a bicarb gtt for severe acidosis. He became anuric and hyperkalemic. It was felt that he would be unable to tolerate HD and his elevated potassium was treated with insulin gtt and calcium. His hgb remained stable in the AM and his lactate improved to 10, however, the patient remained critically ill. His family stated that he would not have wanted this and requested that he be terminally extubated. Comfort care measures were ordered and the patient on 04/07/18 at 9:55am. Discharge Medications: None Discharge Instructions: None Follow up Appointments: None Code Status:
[2018-04-07] MEDS ORDERED: Morphine PCA ADULT* 5 MG/ML 30 ML PCA SCH (09:00)
[2018-04-07] MEDS ORDERED: Scopolamine 1.5 mg* PATCH TRANSDERM SCH (09:00)
[2018-04-07] MEDS ORDERED: Morphine VIAL* 10 MG/ML 1 ML VIAL IV PRN (09:05)
--- NOTE | 2018-04-07 09:12 | PN ---
Progress Note - Progress Note Date of Service: 04/07/18 SOAP: Subjective: family has opted for terminal extubation. Jose Alberto is awake and answering questions. denies any pain at this time. Objective: Vital Signs Temp Pulse Resp BP Pulse Ox 98.4 F 137 22 101/57 95 04/07/18 07:30 04/07/18 07:30 04/07/18 08:17 04/07/18 07:30 04/07/18 07:30 anasarcic awake, answering questions tachypneic, bleching firm abdomen Assessment: 72 yo M w cirrhosis and newly diagnosed metastatic poorly differentiated sarcomatoid carcinoma presenting with massive upper GI bleed that ultimately appears terminal. Family/patient have decided in light of metastatic cancer and underlying medical issues to not pursue further therapy, and therefore will be terminally extubated. The family has requested an autopsy to elucidate etiology of cancer, which is completely appropriate. Plan: -terminal extubation performed -morphine drip for comfort/respiratory distress -ativan prn agitation -atropine drops if needed for secretions
[2018-04-07] MEDS ORDERED: Morphine VIAL* 4 MG/ML VIAL (1 ml vial) IV ONE (09:17)
[2018-04-07 09:26] VITALS: BP 124/72
[2018-04-07] MEDS ORDERED: Ondansetron INJ* 2 MG/ML VIAL IV PRN (09:29)
[2018-04-07] MEDS ORDERED: Ondansetron INJ* 2 MG/ML VIAL ONE (09:32)
[2018-04-07] MEDS: Octreotide Acetate* 500 MCG in NS 0.9% 100 ML* 100 ML IVPB SCH (09:38)
[2018-04-07] MEDS: Pantoprazole IV* 80 MG in NS 0.9% 250 ML* 250 ML IV SCH (09:38)
[2018-04-10] MEDS ORDERED: Scopolamine PATCH Remove* 1 NOTE MISC PATCH OFF SCH (08:09)
== END 2018-04-07 09:55 | disposition expired | DRG 698 ==
LOC: ED 07:44 → ICU 10:41
PROVIDERS: ADMIT Internal Medicine; ATTEND Internal Medicine
PROC: 02HV33Z Insertion of Infusion Device into Superior Vena Cava, Percutaneous Approach (ICD-10-PCS; principal; 2018-04-06)
PROC: 3E043XZ Introduction of Vasopressor into Central Vein, Percutaneous Approach (ICD-10-PCS; 2018-04-06)
PROC: 0BH17EZ Insertion of Endotracheal Airway into Trachea, Via Natural or Artificial Opening (ICD-10-PCS; 2018-04-06)
PROC: 30233N1 Transfusion of Nonautologous Red Blood Cells into Peripheral Vein, Percutaneous Approach (ICD-10-PCS; 2018-04-06)
PROC: 06L38CZ Occlusion of Esophageal Vein with Extraluminal Device, Via Natural or Artificial Opening Endoscopic (ICD-10-PCS; 2018-04-06)
PROC: 5A1935Z Respiratory Ventilation, Less than 24 Consecutive Hours (ICD-10-PCS; 2018-04-06)
DX: T83.518A Infection and inflammatory reaction due to other urinary catheter, initial encounter (principal); I85.11 Secondary esophageal varices with bleeding; J96.90 Respiratory failure, unspecified, unspecified whether with hypoxia or hypercapnia; A41.9 Sepsis, unspecified organism; R65.21 Severe sepsis with septic shock; N39.0 Urinary tract infection, site not specified; C34.90 Malignant neoplasm of unspecified part of unspecified bronchus or lung; E87.2 Acidosis; J90 Pleural effusion, not elsewhere classified; K92.1 Melena; C78.00 Secondary malignant neoplasm of unspecified lung; D62 Acute posthemorrhagic anemia; J98.11 Atelectasis; R18.8 Other ascites; Y73.1 Therapeutic (nonsurgical) and rehabilitative gastroenterology and urology devices associated with adverse incidents; I10 Essential (primary) hypertension; E78.5 Hyperlipidemia, unspecified; K74.60 Unspecified cirrhosis of liver; E11.9 Type 2 diabetes mellitus without complications; Z66 Do not resuscitate; Z51.5 Encounter for palliative care; L40.50 Arthropathic psoriasis, unspecified; N40.1 Benign prostatic hyperplasia with lower urinary tract symptoms; R33.9 Retention of urine, unspecified; C80.1 Malignant (primary) neoplasm, unspecified; N20.0 Calculus of kidney; M47.816 Spondylosis without myelopathy or radiculopathy, lumbar region; I34.0 Nonrheumatic mitral (valve) insufficiency; R34 Anuria and oliguria; E87.5 Hyperkalemia; Y92.9 Unspecified place or not applicable; Z83.3 Family history of diabetes mellitus; Z82.49 Family history of ischemic heart disease and other diseases of the circulatory system; Z88.2 Allergy status to sulfonamides; Z91.048 Other nonmedicinal substance allergy status; Z87.442 Personal history of urinary calculi; Z87.891 Personal history of nicotine dependence; Z80.42 Family history of malignant neoplasm of prostate; Z80.0 Family history of malignant neoplasm of digestive organs
CPT/HCPCS: 36415; 36600; 71045; 71275; 74176; 74177; 80048; 80053; 81003; 81015; 82270; 82550; 82803; 83605; 83735; 83880; 84484; 85025; 85060; 85610; 85660; 85730; 86140; 86850; 86900; 86901; 86922; 87040; 87077; 87086; 87186; 87641; 93005; 93306; 94002; 94660; 99156; 99157; 99285; A9270-GY; J0330; J1815; J2060; J2250; J2270; J2354; J2405; J2543; J2765; J3010; J3370; J3475; J7060; P9040; Q9967